=== PATIENT | female | born 1995 | race Caucasian/White ===

== ENCOUNTER 2021-01-21 11:25 | Emergency (ER) | payer OTHER, SELFPAY ==
[2021-01-21] VITALS (13 sets, daily range): BP systolic 101–142; BP diastolic 68–107; PULSE 78–113; RESP 12–17; TEMP 36.4; O2SAT 98–100
--- NOTE | ~2021-01-21 | CT_ITS ---
EXAMINATION: CT brain wo con DATE: 01/21/2021 12:59 INDICATION: Fall downstairs. Struck back of head. Syncope. Neck pain. TECHNIQUE: Computed tomography (CT) of the head was performed without intravenous contrast. The mA wa s adjusted according to patient size. Iterative reconstruction technique was employed. Exam dose: 60 5.33 mGy-cm total exam DLP. COMPARISON: None FINDINGS: No intracranial mass lesion or hemorrhage or cerebrovascular accident. No midline shift or mass effect. Normal ventricular size. Normal singh-white matter differentiation. No subdural or epidural hematoma. No fracture or bone destruction of the cranial vault. Included paranasal sinuses and mastoid air cells are normally developed and aerated. IMPRESSION: Negative examination Reviewed, dictated and finalized at [facility]. Reviewed, dictated and finalized at location A. 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
--- NOTE | ~2021-01-21 | CT_ITS ---
EXAMINATION: CT cervical spine wo con DATE: 01/21/2021 12:59 INDICATION: Fall downstairs. Neck pain. TECHNIQUE: Computed tomography (CT) of the cervical spine was performed without intravenous contrast. Automated exposure control and iterative reconstruction technique were employed. Exam dose: 283.46 mGy-cm total exam DLP. COMPARISON: None FINDINGS: C1 and C2 are normally aligned and the odontoid process is intact. Mild reversal of cervica l curvature. This may be due to muscle spasm or positioning. No fracture or dislocation or locked facet or prevertebral soft tissue swelling. The cervical intersp aces are well preserved.. IMPRESSION: Mild reversal of cervical curvature; no fracture or dislocation Reviewed, dictated and finalized at [facility]. Reviewed, dictated and finalized at location A. HT TEST ENGINEER
--- NOTE | ~2021-01-21 | CT_ITS ---
CT thoracic lumbar wo con DATE: 01/21/2021 13:04 INDICATION: Fall downstairs. Mid and low back pain TECHNIQUE: Axial images through the thoracic and lumbar spine; sagittal and coronal reconstructions Exam dose: 1225.52 mGy-cm total exam DLP. COMPARISON: None FINDINGS: No fracture or dislocation or bone destruction of the thoracic or lumbar spine. Lumbar levels interspaces are well preserved. No spondylolysis or spondylolisthesis. IMPRESSION: No thoracic or lumbar spine fracture Reviewed, dictated and finalized at [facility]. Reviewed, dictated and finalized at location A. LOGIST
--- NOTE | 2021-01-21 11:31 | ECG_ITS ---
Measurements Intervals [place] Rate: 75 P: 66 DC: 146 QRS: 57 QRSD: 91 T: -12 QT: 374 QTc: 420 Interpretive Statements SINUS RHYTHM WITH SINUS ARRHYTHMIA NONSPECIFIC T-WAVE ABNORMALITY- ANT/INF LEADS BORDERLINE ECG Electronically Signed On 01-21-2021 12:38:25 COGNOS by Hernan Sands D.O.
[2021-01-21 11:43] LABS: Basophils Percent Auto 0.3 % (0.2-1.2); Eosinophils Absolute Auto 0.1 K/mm3 (0-0.3); Hematocrit 38.9 % (37.0-47.0); Hemoglobin 12.8 g/dL (12.0-15.0); Immature Granulocyte Absolute 0.01 K/mm3 (0.00-0.031); Immature Granulocyte Percent A 0.2 % (0-0.5); Lymphocytes Absolute Auto 1.46 K/mm3 (0.9-3.2); Mean Corpuscular HGB Conc 32.9 g/dl (32-36); Mean Corpuscular Hemoglobin 29.9 pg (26-34); Mean Corpuscular Volume 90.9 fl (80-100); Mean Platelet Volume 10.3 fl (7.4-10.4); Monocytes Absolute Auto 0.7 K/mm3 (0.1-0.6); Neutrophils Absolute Auto 3.9 K/mm3 (1.3-6.7); Neutrophils Percent Auto 63.5 % (45.5-73.1); Platelet Count Result 296 k/mm3 (150-375); Red Blood Count 4.28 M/mm3 (4.2-5.4); Red Cell Distribution Width 13.1 % (11.5-14.5); White Blood Count 6.1 K/mm3 (4.5-10.0)
[2021-01-21 11:54] LABS: Anion Gap 9 mmol/L (8-16); Blood Urea Nitrogen 8 mg/dL (7-17); Calcium 9.5 mg/dL (8.4-10.2); Carbon Dioxide 27 mmol/L (22-30); Chloride 105 mmol/L (98-107); Estimated CRCL calculation 126 ml/min; Estimated Glomerular Filt Rate > 60; Glucose 108 mg/dL (65-105); Potassium 4.1 mmol/L (3.4-5.0); Sodium 141 mmol/L (137-145)
--- NOTE | 2021-01-21 12:52 | PC.NURSE ---
Pt declines toradol injection, states I dont want it. Pt to CT scan via stretcher at this time.
[2021-01-21 13:16] LABS: Ethanol < 10 mg/dL (<10)
--- NOTE | 2021-01-21 13:23 | ED.FALL ---
HPI - Fall General Chief Complaint: Fall Stated Complaint: migraine/dizzy/fall Time Seen by Provider: 01/21/21 12:18 Source: patient Mode of arrival: ambulatory Limitations: no limitations History of Present Illness HPI Narrative: 25-year-old female History of migraines States that about 4 AM today she got up to go to the bathroom and fell down the stairs from their second floor to the first Possibly lightheaded and/or dizzy before falling She has been at home and ambulatory since that time Decided to come to the ER for evaluation because of a painful bump on the back of her head and a headache, and neck pain when she turns her head to the right She did not lose consciousness, and she does not have any current numbness weakness or radicular symptoms No other injuries or complaints Related Data Allergies Allergy/AdvReac Type Severity Reaction Status Date / Time latex Allergy Unknown Rash Verified 01/21/21 13:15 sulfamethoxazole Allergy Unknown Hives Verified 01/21/21 13:15 trimethoprim Allergy Unknown Hives Verified 01/21/21 13:15 Review of Systems Review of Systems: All systems reviewed & are unremarkable except as noted in HPI and below Constitutional: Constitutional: Denies fatigue, Denies fever(s) and Denies headache(s) Eyes: Eyes: Reports no additional eye complaints and Denies change in vision ENT: Denies headache(s), Denies epistaxis, Denies nasal congestion and Denies sore throat Cardiovascular: Cardiovascular: Denies chest pain, Denies leg edema, Denies palpitations and Denies dyspnea Respiratory: Respiratory: Denies cough, Denies dyspnea and Denies wheezing Gastrointestinal: Gastrointestinal: Denies diarrhea and Denies vomiting Genitourinary: Genitourinary: Denies hematuria, Denies urinary frequency and Denies dysuria Musculoskeletal: Musculoskeletal: Denies deformity, Denies arthralgias, Denies joint swelling, Denies muscle weakness and Denies numbness Integumentary/Breasts: Skin/Breast: Denies rash and Denies wounds Neurologic: Reports syncope, Reports headache(s), Denies focal weakness, Denies numbness and Denies weakness Psychiatric: Psychiatric: Reports no additional psychiatric complaints Endocrine: Endocrine: Denies fatigue and Denies palpitations Hematologic/Lymphatic: Hematologic/Lymphatic: Denies easy bleeding and Denies easy bruising Allergic/Immunologic: Allergic/Immunologic: Denies wheezing PMFSH Social History Social History Gender identity (if verbalized by the patient): Female Exam Const: General: no acute distress, well developed, alert and awake Nutritional Appearance: well nourished Orientation/consciousness: patient oriented x3 (alert) Limitations: no limitations HENMT: Head: normocephalic, atraumatic, contusion (Occipital tenderness, does not seem to be terribly swollen) and no hematomas Ears: external ears normal General nose exam: No nasal discharge present and no epistaxis Face and sinus: face symmetric Eyes: Conjunctivae: conjunctivae normal Sclera: sclerae normal EOM: EOMs intact bilaterally Neck: Neck: supple and no JVD Other: Cervical collar was placed at triage and left in place, there is mild midline tenderness in the lower C-spine Chest: Chest palpation & inspection: normal inspection of the chest, deferred and no tenderness Resp: Effort & Inspection: normal respiratory effort Auscultation: clear to auscultation bilaterally and other (BS =) Cardio: Rate: regular rate Rhythm: regular rhythm Heart sounds: no gallops GI: Inspection: normal to inspection GI Palp: Yes Soft to palpation and No Tenderness to palpation present (GI) Other: Pelvis nontender : General: Yes no CVA tenderness Back/Spine/Pelvis: Thoracic/Lumbar Spine: thoracic and lumbar spine normal to inspection Other: Small bruise over the right mid back about at the tip of the scapula, mild mid thoracic and mid lumbar midline tenderness Skin: General skin exam: no rashes or l
--- NOTE | 2021-01-21 13:37 | PC.NURSE ---
Per Dr. Ritter requests the patients' c-collar remain in place at this time.
--- NOTE | 2021-01-21 14:34 | PC.NURSE ---
Dr. Ritter at bedside discussing plan of care.
== END 2021-01-21 14:43 | disposition home or self-care (01) ==
PROVIDERS: Emergency Medicine; Emergency Provider Emergency Medicine; PCP Obstetrics & Gynecology
DX: S20.221A Contusion of right back wall of thorax, initial encounter (principal); R94.31 Abnormal electrocardiogram [ECG] [EKG]; W10.9XXA Fall (on) (from) unspecified stairs and steps, initial encounter
CPT/HCPCS: 36415; 70450; 72125; 72128; 72131; 80048; 80307; 81025; 85025; 93005; 99284; L0140

== ENCOUNTER 2021-04-05 12:34 | Outpatient (CLI) | payer OTHER, SELFPAY ==
--- NOTE | ~2021-04-05 | US_ITS ---
EXAMINATION: US OB <=14 wk fetus w TV EXAM DATE: 04/05/2021 13:23 INDICATION: Routine care, dating. 1st trimester. TECHNIQUE: Pelvic obstetrical transabdominal sonogram was performed by a technologist. There are mu ltiple grayscale and Doppler images available for interpretation. There are no earlier studies of th is gestation for comparison. FINDINGS: Uterus measures 10.3 x 7.2 x 7.0 cm. There is intrauterine gestation sac. pole with heart rate confirmed at 154-166 beats per minute. The 1.44 cm crown-rump length corresponds to eva mated gestational age by ultrasound of 7 weeks 5 days, estimated date of confinement 11/17. Yolk sac is identified. Small subchorionic hematoma. Ovaries are morphologically normal. IMPRESSION: 1. Early live intrauterine gestation, age by ultrasound 7 weeks 5 days. 2. Small subchorionic hemorrhage. Reviewed, dictated and finalized at location A.
== END 2021-04-05 12:35 | disposition home or self-care (01) ==
PROVIDERS: PCP Obstetrics & Gynecology; Visit Provider Obstetrics & Gynecology
DX: O46.91 Antepartum hemorrhage, unspecified, first trimester (principal); Z3A.01 Less than 8 weeks gestation of pregnancy
CPT/HCPCS: 76801; 76817

== ENCOUNTER 2021-04-23 22:28 | Observation (INO) | payer OTHER, SELFPAY ==
[2021-04-23 22:36] VITALS: PULSE 96; O2SAT 100
[2021-04-23 23:16] VITALS: BMI 26.6
--- NOTE | 2021-04-23 23:18 | OBADM ---
This patient, Mavis Gee, admitted to the OB room OB Post 117 for observation. Patient/family oriented to hospital policies and general routines including ID bracelet, bed and alarms, visiting hours, pain management, procedures, bathroom and other care routines, personal items, smoking policy, room service/diet, and visiting hours. Patient/Family are encouraged to report perceived risks to care and to ask questions if they do not understand what they are told or what they should do.
[2021-04-23] MEDS: DEXTROSE 5%/LACTATED RINGERS 1,000 ML 500 ML IV CONT (23:35)
[2021-04-23] MEDS: ONDANSETRON INJ 4 MG/2 ML VIAL IV PUSH (23:35)
[2021-04-24] MEDS: DEXTROSE 5%/LACTATED RINGERS 1,000 ML 500 ML IV CONT (02:11)
[2021-04-24 08:17] VITALS: BP 115/53; PULSE 74; TEMP 37
[2021-04-24] MEDS: ONDANSETRON INJ 4 MG/2 ML VIAL IV PUSH (08:18)
--- NOTE | 2021-04-24 10:39 | PC.NURSE ---
1015--Pt. states she is feeling better and requesting to go home. Phone call to Dr. Jones re: pt's status and requesting DC home. Orders to DC home and f/u with next scheduled appointment.
--- NOTE | 2021-04-26 19:50 | PM.OBTRLD ---
OB - Triage/Final Diagnosis Visit Information Comments/Additional reasons for admission: I have assessed the risk for this patient, Mavis Gee, and determined that she would benefit from observation care. Final Diagnosis (1) Hyperemesis gravidarum: Code(s): O21.0 - Mild hyperemesis gravidarum Status: Acute (2) Dehydration during : Code(s): O26.899 - Other specified related conditions, unspecified trimester; E86.0 - Dehydration Status: Acute
== END 2021-04-24 10:32 | disposition home or self-care (01) ==
PROVIDERS: Admitting Provider Obstetrics & Gynecology; PCP Obstetrics & Gynecology; Visit Provider Obstetrics & Gynecology
DX: O21.1 Hyperemesis gravidarum with metabolic disturbance (principal); Z3A.10 10 weeks gestation of pregnancy
CPT/HCPCS: 96361; 96374; G0378; G0379; J2405; J7121

== ENCOUNTER 2021-05-03 12:35 | Outpatient (CLI) | payer OTHER, SELFPAY ==
--- NOTE | ~2021-05-03 | US_ITS ---
EXAMINATION: US OB <= 14 weeks fetus DATE: 05/03/2021 13:20 INDICATION: Follow-up subchorionic hematoma TECHNIQUE: Real-time transabdominal and transvaginal obstetric ultrasound. FINDINGS: 04/05/2021 The uterus measures 8.4 x 10.4 x 8.2 cm. There is an intrauterine gestational sac, with pole id entified. The crown rump length measures 6 cm. heart tones are identified measuring 149 BPM. T here is a subchorionic hemorrhage measuring 1.3 x 0.9 x 0.7 cm. Ovaries are not visualized. IMPRESSION: 1. SL IUP with an EGA of 11 weeks, 5 days (EDC by initial ultrasound of 11/17/2021). 2: Small subchorionic hemorrhage. Reviewed, dictated and finalized at location B. IMPRESSION: 1. SL IUP with an EGA of 11 weeks, 5 days (EDC by initial ultrasound of 021). 2: Small subchorionic hemorrhage.
== END 2021-05-03 12:36 | disposition home or self-care (01) ==
LOC: ANHIMG 12:35
PROVIDERS: PCP Obstetrics & Gynecology; Visit Provider Obstetrics & Gynecology
DX: O36.8911 Maternal care for other specified fetal problems, first trimester, fetus 1 (principal); Z3A.11 11 weeks gestation of pregnancy
CPT/HCPCS: 76801

== ENCOUNTER 2021-06-08 09:15 | Outpatient (CLI) | payer OTHER, SELFPAY ==
--- NOTE | ~2021-06-08 | US_ITS ---
EXAMINATION: US OB follow up EXAM DATE: 06/08/2021 09:42 INDICATION: Follow-up subchorionic hemorrhage. 2nd trimester. TECHNIQUE: Pelvic obstetrical transabdominal sonogram was performed by a technologist. There are mu ltiple grayscale and Doppler images available for interpretation. Comparison is made to prior examina tion from 05/03/2021. FINDINGS: There is a single fetus identified in vertex presentation with a heart rate of 149 beats pe r minute. The placenta is located in the anterior position. There is an intraplacental hypoechoic reg ion along its inner surface measuring about 1.2 x 1.1 x 1.7 cm, likely a venous donato. Hypoechoic sho on previously seen in subchorionic location has resolved. Retroplacental region is normal in appearan ce on this exam. IMPRESSION: 1. Single fetus in vertex presentation with heart rate 149 beats per minute. 2. Resolution of previously seen subchorionic hemorrhage. 3. Small placental venous donato. Reviewed, dictated and finalized at location A.
== END 2021-06-08 09:16 | disposition home or self-care (01) ==
LOC: ANHIMG 09:16
PROVIDERS: Visit Provider Obstetrics & Gynecology
DX: Z34.90 Encounter for supervision of normal pregnancy, unspecified, unspecified trimester (principal); Z3A.00 Weeks of gestation of pregnancy not specified
CPT/HCPCS: 76816

== ENCOUNTER 2021-07-09 14:36 | Outpatient (CLI) | payer OTHER, SELFPAY ==
--- NOTE | ~2021-07-09 | US_ITS ---
US OB /maternal detail DATE: 07/09/2021 16:01 INDICATION: anatomy screen; prior subchorionic hematoma TECHNIQUE: Real-time imaging and Doppler analysis COMPARISON: 06/08/2021 obstetrical ultrasound FINDINGS: Live single intrauterine gestation, fetus in vertex presentation, longitudinal lie. h eart rate of 141 bpm. Fundal placenta, lower margin 2.3 cm above the internal os. Subjectively normal amount of amniotic fluid. No cerebral ventriculomegaly. The cerebellum appears normal. Normal nuchal fold. 4 chambe r heart. Three-vessel umbilical cord with normal insertion at abdominal wall. The s pine appears unremarkable. The diaphragm appears intact. Fluid is demonstrated in the sto mach and urinary bladder. No hydronephrosis is demonstrated. male external genitalia. nose and lips appear unremarkable. Biometry: Biparietal diameter: 5.12 cm; 21 weeks 4 days Head circumference 19.03 cm; 21 weeks, 2 days Abdominal circumference 16.31 cm: 21 weeks 3 days Femur length 3.57 cm; 21 weeks 2 days Composite age by Hadlock formula is 21 weeks 3 days +/- 1 week 3 days; [place]: 11/12/2021 Estimated weight is 417.1 +/- 62.6 g. Head circumference/abdominal circumference: 1.17, within normal range of 1.0, 671.24 Femur length/abdominal circumference: 21.88, within normal range of 20.00-24.00 Femur length/head circumference: 18.75, within normal range of 16.9 cm-20.26 IMPRESSION: Normal anatomy screen Composite age by Hadlock formula is 21 weeks 3 days +/- 1 week 3 days; [place]: 11/12/2021 Reviewed, dictated and finalized at Location A. Reviewed, dictated and finalized at location A.
== END 2021-07-09 14:37 | disposition home or self-care (01) ==
PROVIDERS: PCP Obstetrics & Gynecology; Visit Provider Obstetrics & Gynecology
DX: Z34.92 Encounter for supervision of normal pregnancy, unspecified, second trimester (principal); Z3A.21 21 weeks gestation of pregnancy
CPT/HCPCS: 76805

== ENCOUNTER 2021-10-01 12:47 | Observation (INO) | payer OTHER, SELFPAY ==
[2021-10-01 13:13] VITALS: BP 118/63; PULSE 96
[2021-10-01 13:16] VITALS: BP 116/64; PULSE 95
[2021-10-01 13:31] VITALS: BP 115/71; PULSE 96
[2021-10-01 13:45] VITALS: BMI 62.8
[2021-10-01 14:31] LABS: Add Urine Microscopic? YES; Appearance Urine Cloudy (Clear); Bacteria Urine Trace /hpf; Bilirubin Urine Negative (Negative); Blood Urine Negative (Negative); Color Urine Yellow (Yellow); Glucose Urine UA Negative (Negative); Ketones Urine 1+ mg/dL (Negative); Leukocyte Esterase Ur 2+ LEU/UL (NEGATIVE); Mucus Urine Rare /lpf; Nitrate Urine Negative (Negative); Protein Urine Negative (Negative); Specific Grav Ur 1.014 (1.001-1.035); Squamous Epithelial Cell Urine Many /hpf (Few)
[2021-10-01] MEDS: LACTATED RINGERS 1,000 ML 999 ML IV CONT (15:28)
[2021-10-01] MEDS: ceFAZolin 2 GM/D5W 50 ML 2 GM/50 ML BAG IVPB (15:40)
--- NOTE | 2021-10-03 05:37 | PM.OBTRLD ---
OB - Triage/Final Diagnosis Visit Information Comments/Additional reasons for admission: I have assessed the risk for this patient, Mavis Gee, and determined that she would benefit from observation care. Evaluation Laboratory results: Laboratory Tests 10/01/21 13:52 Urine Color Yellow Urine Appearance Cloudy H Urine pH 6.0 Ur Specific [place] 1.014 Urine Protein Negative Urine Glucose (UA) Negative Urine Ketones 1+ H Ur Blood (Man) Negative Urine Nitrate Negative Urine Bilirubin Negative Urine Urobilinogen 2.0 H Ur Leukocyte Esterase 2+ H Urine RBC 3-5 H Urine WBC 7-9 H Ur Squamous Epith Cells Many H Urine Bacteria Trace Urine Mucus Rare Final Diagnosis (1) Dehydration during : Code(s): O26.899 - Other specified related conditions, unspecified trimester; E86.0 - Dehydration Status: Acute (2) UTI (urinary tract infection) during : Code(s): O23.40 - Unspecified infection of urinary tract in , unspecified trimester Status: Acute
== END 2021-10-01 15:56 | disposition home or self-care (01) ==
LOC: ANHOBPP 13:11
PROVIDERS: Admitting Provider Obstetrics & Gynecology; Visit Provider Obstetrics & Gynecology
DX: O26.893 Other specified pregnancy related conditions, third trimester (principal); O23.43 Unspecified infection of urinary tract in pregnancy, third trimester; E86.0 Dehydration; Z3A.33 33 weeks gestation of pregnancy
CPT/HCPCS: 81001; 87086; 87088; 96374; G0378; G0379; J0690; J7120

== ENCOUNTER 2021-10-10 07:47 | Observation (INO) | payer OTHER, SELFPAY ==
--- NOTE | 2021-10-10 07:47 | OBADM ---
This patient, Mavis Gee, admitted to the OB room OB Post 116 for observation. Patient/family oriented to hospital policies and general routines including ID bracelet, bed and alarms, visiting hours, pain management, procedures, bathroom and other care routines, personal items, smoking policy, room service/diet, and visiting hours. Patient/Family are encouraged to report perceived risks to care and to ask questions if they do not understand what they are told or what they should do.
[2021-10-10 08:00] VITALS: BMI 28.8
[2021-10-10 08:16] VITALS: BP 113/68; PULSE 89
[2021-10-10 08:23] LABS: Add Urine Microscopic? YES; Appearance Urine Cloudy (Clear); Bacteria Urine Trace /hpf; Bilirubin Urine Negative (Negative); Blood Urine Negative (Negative); Color Urine Yellow (Yellow); Glucose Urine UA 2+ mg/dL (Negative); Ketones Urine Negative (Negative); Leukocyte Esterase Ur 2+ LEU/UL (NEGATIVE); Mucus Urine Rare /lpf; Nitrate Urine Negative (Negative); Protein Urine Negative (Negative); Specific Grav Ur 1.013 (1.001-1.035); Squamous Epithelial Cell Urine Many /hpf (Few); Urobilinogen Urine Negative mg/dL (<2.0)
[2021-10-10 08:31] VITALS: BP 107/66; PULSE 76
[2021-10-10] MEDS: CYCLOBENZAPRINE HCL 5 MG TABLET PO (09:25)
--- NOTE | 2021-10-14 13:52 | PM.OBTRLD ---
OB - Triage/Final Diagnosis Visit Information Comments/Additional reasons for admission: I have assessed the risk for this patient, Mavis Gee, and determined that she would benefit from observation care. Evaluation Laboratory results: Laboratory Tests 10/10/21 08:01 Urine Color Yellow Urine Appearance Cloudy H Urine pH 7.0 Ur Specific [place] 1.013 Urine Protein Negative Urine Glucose (UA) 2+ H Urine Ketones Negative Ur Blood (Man) Negative Urine Nitrate Negative Urine Bilirubin Negative Urine Urobilinogen Negative Ur Leukocyte Esterase 2+ H Urine RBC 3-5 H Urine WBC 10-15 H Ur Squamous Epith Cells Many H Urine Bacteria Trace Urine Mucus Rare Final Diagnosis (1) Abdominal pain affecting : Code(s): O26.899 - Other specified related conditions, unspecified trimester; R10.9 - Unspecified abdominal pain Status: Acute
== END 2021-10-10 10:50 | disposition home or self-care (01) ==
PROVIDERS: Admitting Provider Obstetrics & Gynecology; Visit Provider Obstetrics & Gynecology
DX: O26.893 Other specified pregnancy related conditions, third trimester (principal); R10.9 Unspecified abdominal pain; Z3A.34 34 weeks gestation of pregnancy
CPT/HCPCS: 81001; 87086; 87088; A9270; G0378; G0379

== ENCOUNTER 2022-08-19 11:41 | Outpatient (CLI) | payer OTHER, SELFPAY ==
[2022-08-19 12:15] LABS: Basophils Absolute Auto 0.1 K/mm3 (0.0-0.1); Basophils Percent Auto 0.9 % (0.2-1.2); Eosinophils Absolute Auto 0.8 K/mm3 (0-0.3); Eosinophils Percent Auto 11.6 % (0-4.4); Hematocrit 34.3 % (37.0-47.0); Hemoglobin 10.4 g/dL (12.0-15.0); Immature Granulocyte Absolute 0.01 K/mm3 (0.00-0.031); Immature Granulocyte Percent A 0.1 % (0-0.5); Lymphocytes Absolute Auto 1.53 K/mm3 (0.9-3.2); Mean Corpuscular HGB Conc 30.3 g/dl (32-36); Mean Corpuscular Hemoglobin 26.6 pg (26-34); Mean Corpuscular Volume 87.7 fl (80-100); Mean Platelet Volume 10.5 fl (7.4-10.4); Monocytes Absolute Auto 0.6 K/mm3 (0.1-0.6); Monocytes Percent Auto 7.9 % (2.6-8.5); Neutrophils Percent Auto 57.5 % (45.5-73.1); Platelet Count Result 269 k/mm3 (150-375); Red Blood Count 3.91 M/mm3 (4.2-5.4); Red Cell Distribution Width 15.6 % (11.5-14.5)
== END 2022-08-19 11:42 | disposition home or self-care (01) ==
LOC: ANHLAB 11:43
PROVIDERS: Visit Provider Obstetrics & Gynecology
DX: N93.9 Abnormal uterine and vaginal bleeding, unspecified (principal); N92.6 Irregular menstruation, unspecified
CPT/HCPCS: 36415; 85025; 86850; 86900; 86901

== ENCOUNTER 2022-08-23 02:24 | Day surgery (SDC) | payer OTHER, SELFPAY ==
[2022-08-15 14:22] VITALS: BMI 24.7
--- NOTE | 2022-08-15 14:23 | PC.NURSE ---
Report to the Outpatient Waiting Room, entrance under the green pavilion located off [facility], at time 0930_ on date _08/23/22_. OR Time: __1130_. Time changes happen often and if your time is changed the preop area will call you the afternoon before. - You and your visitor will be asked to self-screen and do not enter if you have any COVID symptoms. - Only one visitor and NO children visitors are allowed at this time. - The patient visitor is requested to leave or wait in car when not with patient due to restrictions. - A mask is required within the hospital. Patients may have clear liquids (water, carbonated beverages, clear teas, apple juice) until 3 hours prior to surgery with a maximum of 20 ounces. - No food from midnight until time of surgery - Infants may have breast milk until 4 hours before surgery, infant formula 6 hours prior to surgery. - Children will be allowed to drink immediately following surgery. If applicable, please bring a bottle or sippy cup to assist with drinking. Juice, water, soda, and popsicles are readily available. For infants on formula, please bring formula the day of surgery. Pacifiers are allowed. Take the following medications with a SIP of water the morning of surgery: NONE Medications to discontinue per physician NONE Date to take last dose Please no make-up, nail kenyan, hairspray, perfume, deodorant, or body powder the day of surgery. No jewelry (including any body piercings) or valuables the day of surgery, leave them at home. Please take a shower or bath the night before, or the morning of, surgery with an antibacterial soap. Wear comfortable, loose fitting clothing. Children are encouraged to wear pajamas. - Jewelry must be removed prior to entering the operating room. Rings and piercings that are not removed may be cut off. - The hospital will not accept responsibility for valuables. - Please leave all valuables, including medications, at home the day of surgery. If you are going home after surgery, a licensed tilt tray driver must drive you home. - NO public transportation without another adult. - We recommend that an adult stay with you for 24 hours following discharge. - We also recommend that you do not drive, make important decision, drink alcoholic beverages, or take any drugs that were not prescribed by your health care provider for at least 24 hours after your discharge time. For Pediatric surgeries, we recommend two adults accompany the child home (only one inside the building at this time). Follow any additional instructions given to you from your surgeon. If you or anyone in your household have experienced Covid symptoms in the past week, please notify your surgeon or the nurse liaison at the phone number below for possible testing. Telephone instructions given to PATIENT__and asked if any additional questions and then verbalized understanding. Patient advised to call surgeon office or pre surgery nurse liaison [phone] if any additional questions.
--- NOTE | 2022-08-20 14:59 | P.HP_ITS ---
H&P: HPI History of Present Illness Date/Time: 08/20/22 14:59 Chief Complaint: Uterine prolapse pelvic pain failed ablation Narrative: Sh 26-year-old 3 para status post tubal who is admitted for robotic to jacob vaginectomy and bilateral salpingectomy secondary to severe pelvic pain and uterine prolapse. She has had her tubes tied. She has pain with intercourse and has what appears to be a normal-appearing ultrasound otherwise. As her pain has been unrelenting she will undergo hysterectomy. She understands this will make her permanently infertile. Risks and benefits of this procedure were reviewed including but not exclusive of , aspiration pneumonia, bleeding, transfusion, perforation injury to bowel, bladder, ureters, or other internal organs with need for open laparotomy. She received the ACOG handout entitled hysterectomy as well as the [place] handout. She had all questions answered. She asked to proceed PMFSH Past Medical History Medical History Hyperemesis gravidarum Social History Social History Smoking status: Never smoker Gender identity (if verbalized by the patient): Female Meds Home Medications and Allergies Home Medications Medication Instructions Recorded Confirmed Type No Home Medications 08/15/22 08/15/22 History Allergies Allergy/AdvReac Type Severity Reaction Status Date / Time chlorhexidine Allergy Severe Rash Verified 08/15/22 14:14 latex Allergy Unknown Rash Verified 01/21/21 13:15 sulfamethoxazole Allergy Unknown Hives Verified 01/21/21 13:15 trimethoprim Allergy Unknown Hives Verified 01/21/21 13:15 Exam Const: General: cooperative, healthy appearing and comfortable Nutritional Appearance: average body habitus Orientation/consciousness: oriented to person, oriented to place and oriented to time Chest: Chest palpation & inspection: normal inspection of the chest Resp: Effort & Inspection: normal respiratory effort Cardio: Rate: regular rate Rhythm: regular rhythm Heart sounds: S1 normal heart sound present and S2 normal heart sound present GI: Inspection: normal to inspection : External Female Exam: normal external appearance Speculum Exam - Vagina: normal appearance of the vagina Speculum Exam - Cervix: normal appearance of the cervix (Second-degree prolapse is present) Bimanual exam- vagina & uterus: Cervical tenderness present and enlarged Bimanual Exam- Adnexa, other: normal adnexae Assessment and Plan Assessment and plan (1) Uterine prolapse: Code(s): N81.4 - Uterovaginal prolapse, unspecified Status: Acute (2) Pelvic pain: Code(s): R10.2 - Pelvic and perineal pain Status: Acute Plan Robotic total vaginal hysterectomy and bilateral salpingectomy
--- NOTE | 2022-08-22 15:44 | WPDANESEPPF ---
Anes - Initial Pre Proc Eval Procedure: Operation Date: 08/23/22 11:30 Proposed Procedures p Robotic Assisted Total Vaginal Hysterectomy, Bilateral Salpingectomy - Luis Driscoll MD Date/Time: 08/22/22 15:44 Surgeon: Luis Driscoll MD Pre Op Diagnosis: Irrg Bleed, Uterine Prolapse Failed ablation Patient Data Age: 26 Gender: F Height: 1.75 m Weight: 76 kg Allergies Allergy/AdvReac Type Severity Reaction Status Date / Time chlorhexidine Allergy Severe Rash Verified 08/23/22 09:49 sulfamethoxazole Allergy Intermediate Hives Verified 08/23/22 09:49 trimethoprim Allergy Intermediate Hives Verified 08/23/22 09:49 Home Medications Medication Instructions Recorded Confirmed Type hydrocodone 5 mg-acetaminophen 325 1 tablet PO Q4H PRN pain #30 tabs 08/23/22 Rx mg tablet Patient hx anesthesia problems: none Family hx anesthesia problems: none Results Review: All pre-operative results and documents have been reviewed as part of the pre-operative evaluation. [facility] Past Medical History Medical History (Updated 08/23/22 @ 10:11 by Lewis Rivera MD) Hyperemesis gravidarum Pelvic pain Uterine prolapse Social History Social History Smoking status: Never smoker Living arrangements: with family Gender identity (if verbalized by the patient): Female Anes - Eval Final PreProcedure Day of Procedure 08/22/22 15:44 Patient weight: normal Heart: regular rate and rhythm Lungs: clear to auscultation and normal air movement Airway: Mallampati scale class II Neurological: alert and oriented Last oral intake: >/= 8 hours ASA classification: II Emergent: no Anesthetic plan: proceed Anesthesia type and monitoring: general ETT Results Review: All pre-operative results and documents have been reviewed as part of the pre-operative evaluation. Informed Consent: The patient's anesthetic plan and its attendant risks and benefits were discussed with the patient/family/POA. Questions were solicited and answers provided to the satisfaction of the patient/family/POA.
[2022-08-23] VITALS (11 sets, daily range): BP systolic 102–121; BP diastolic 54–72; PULSE 55–95; RESP 12–18; TEMP 36.1–37.2; O2SAT 99–100
--- NOTE | 2022-08-23 06:24 | WPDHPUPDATE1 ---
History and Physical Update Update Date/Time: 08/23/22 06:24 History and Physical has been reviewed, including an updated exam of the patient. There are NO changes in the patient's condition. Risks, benefits, and alternatives have been discussed and questions answered. Patient agrees to proceed with procedure.
[2022-08-23] MEDS: ACETAMINOPHEN 500 MG TABLET 1000 MG PO (09:57)
[2022-08-23] MEDS: LACTATED RINGERS 1,000 ML 30 ML IV CONT ×2 (10:08→13:39)
[2022-08-23] MEDS: KETOROLAC 15 MG/ML VIAL (*BKC) IV PUSH (10:10)
--- NOTE | 2022-08-23 13:17 | W.PM.PROC2 ---
Procedure Note - Detailed Date of Procedure 08/23/22 Pre-op Diagnosis Irrg Bleed, Uterine Prolapse Failed ablation Post-op Diagnosis Same Procedure Performed Robotic total vaginal hysterectomy and bilateral salpingectomy Surgeon Luis Driscoll MD Anesthesia General Indications A 26-year-old with heavy bleeding and uterine prolapse and pain Findings Uterine prolapse. Normal-appearing ovaries tubes and uterus Description of Procedure Patient was prepped draped in normal sterile fashion placed in dorsal lithotomy position. Under excellent general trach anesthesia weighted speculum placed posterior vagina. Anterior lip of the cervix grasped with single-tooth tenaculum and the uterus sounded to 10cm. Serial dilatation with fragmented dilators performed followed by passage of the 8. MELANY and the 3. Cold cup. Next the 16 Turkish catheter was placed in bladder and and drained of clear urine. The weighted speculum was withdrawn as was the single-tooth and the gloves were changed. A supraumbilical incision made the Veress needle passed in the abdomen. Abdomen filled with CO2 gas [id number]. The 8mm trocar advanced in the abdomen. Downside visualized no injury seen. Gas reattached. Placed the patient placed in Trendelenburg and a suprapubic incision made on the left and lateral right quadrant. The 8mm trocars advanced under direct visualization assuring no injury. A right upper quadrant incision made the 8mm trocar advanced under direct visualization assuring no injury. The robot was docked. Attention was turned to the console. The left round ligament grasped, burned, cut. Anteriorly bladder flap was formed by sharply dissecting the peritoneum and reflecting the bladder caudally to the opposite round ligament which was clamped, burned, cut. Next the left fallopian tube was skeletonized and dissected away from the ovarian complex and left attached at its uterine origin 8 origination. This was repeated on the contralateral side removing the right tube. The left utero-ovarian ligament was clamped, burned, cut brought to the level of the previously cut round ligament. Conserving the right ovary, the utero-ovarian ligaments clamped, burned, cut and brought to the level of previously cut round ligament. The cardinal broad ligaments were then serially skeletonized clamping burning cutting and hugging the uterine cervix until the uterine vessels could be seen on the left. These were large and tortuous and individually clamped, burned, cut. The right cardinal broad ligaments were then serially skeletonized clamping burning cutting and hugging the cervix and uterus to the uterine vessels could be seen on the right. These were individually clamped, burned, cut. At that point excellent blanching was seen. A colpotomy incision was made in the cervix uterus and tubes removed through the vagina. Vagina closed with continuous running 0V lock from lateral edge to lateral edge back to the midline. Irrigation undertaken until clear and blood loss estimated 25cc. The patient was awakened after the robot was withdrawn and the gas removed from the abdomen and the trocars removed. The incisions closed with 4 Monocryl and glue. Patient was awakened went to recovery in satisfactory condition. All sponge, needle, instrument counts were correct. There were no immediate complications noted Estimated Blood Loss 25 Drains No Packing No Pathology Yes Complications No immediate complications Condition Stable Disposition PACU
[2022-08-23] MEDS: fentaNYL CITRATE INJ (*CRX) 100 MCG/2 ML VIAL 25 MCG IV PUSH (14:07)
--- NOTE | 2022-08-23 15:00 | ADMGEN ---
This patient, Mavis Gee, was admitted to OB 2nd Floor Room 280-00. Patient/family oriented to hospital policies and general routines including ID bracelet, bed and alarms, visiting hours, pain management, procedures, bathroom and other care routines, personal items, smoking policy, room service/diet, and visiting hours. Information on how to activate the Rapid Response Team has been discussed. Patient/Family are encouraged to report perceived risks to care and to ask questions if they do not understand what they are told or what they should do.
[2022-08-23] MEDS: DEXTROSE 5%/LACTATED RINGERS 1,000 ML 125 ML IV CONT (15:49)
[2022-08-23] MEDS: KETOROLAC 30 MG/ML VIAL (*BKC) IV PUSH (15:50)
[2022-08-23] MEDS: SIMETHICONE 80 MG TAB.CHEW PO ×2 (18:10→20:58)
[2022-08-24] MEDS: DEXTROSE 5%/LACTATED RINGERS 1,000 ML 125 ML IV CONT (00:54)
[2022-08-24 00:58] VITALS: BP 102/55; PULSE 71; RESP 18; TEMP 37.3; O2SAT 100
[2022-08-24 04:10] VITALS: BP 100/56; PULSE 76; RESP 16; TEMP 37.1; O2SAT 100
--- NOTE | 2022-08-24 05:41 | PM.DS ---
DS: Admitting Diagnosis Discharge Date 08/24/2022 Admitting Diagnosis uterine prolapse and pelvic pain DS: Discharge Diagnosis Discharge Diagnosis (1) Uterine prolapse: Code(s): N81.4 - Uterovaginal prolapse, unspecified Status: Acute (2) Pelvic pain: Code(s): R10.2 - Pelvic and perineal pain Status: Acute DS: Summary Hospital Course Reason for hospitalization: patient was admitted for robotic hysterectomy and bilateral salpingectomy secondary to uterine prolapse and pelvic pain Hospital Course: patient underwent robotic total vaginal hysterectomy and bilateral salpingectomy on 08/23/2022. The procedure was unremarkable. She review her hospital course was unremarkable. She remained afebrile. She was up voiding without difficulty, ambulating, eating regular diet, and generally without complaints. Time Spent with Patient Time attestation: Total time spent providing and/or coordinating discharge services: Exam Const: General: cooperative, healthy appearing and comfortable Orientation/consciousness: oriented to person, oriented to place and oriented to time Resp: Effort & Inspection: normal respiratory effort GI: Inspection: normal to inspection and incision ( Incisions remain clean dry and intact) DS: Data Data Completed and Pending Pending studies at discharge: Pending at discharge 08/23/22 13:03 Surgical [PTH] Routine Labs on day of discharge: Labs from last 24 hours 08/24/22 04:59 WBC Pending RBC Pending Hgb Pending Hct Pending MCV Pending MCH Pending MCHC Pending RDW Pending Plt Count Pending MPV Pending Immature Gran % (Auto) Pending Neut % (Auto) Pending Lymph % (Auto) Pending [place] % (Auto) Pending Eos % (Auto) Pending Baso % (Auto) Pending Lymph # (Auto) Pending [place] # (Auto) Pending Eos # (Auto) Pending Baso # (Auto) Pending Abs Immat Gran (auto) Pending Absolute Neuts (auto) Pending Absolute Nucleated RBC Pending Nucleated RBC % Pending Discharge Plan Discharge Patient Disposition: Home, Self-Care Stand Alone Forms: General Discharge Instructions Follow-up/Referrals: Luis Holliday MD [Physician] - Discharge Medications: New hydrocodone-acetaminophen 5-325 mg tablet 1 tablet PO Q4H PRN (Reason: pain) Qty: 30 0RF
[2022-08-24 05:44] LABS: Basophils Percent Auto 0.5 % (0.2-1.2); Eosinophils Absolute Auto 0.2 K/mm3 (0-0.3); Eosinophils Percent Auto 3.3 % (0-4.4); Hematocrit 26.6 % (37.0-47.0); Hemoglobin 8.3 g/dL (12.0-15.0); Immature Granulocyte Absolute 0.01 K/mm3 (0.00-0.031); Immature Granulocyte Percent A 0.2 % (0-0.5); Lymphocytes Absolute Auto 1.52 K/mm3 (0.9-3.2); Lymphocytes Percent Auto 24.1 % (18.3-44.2); Mean Corpuscular HGB Conc 31.2 g/dl (32-36); Mean Corpuscular Hemoglobin 26.9 pg (26-34); Mean Corpuscular Volume 86.4 fl (80-100); Mean Platelet Volume 10.8 fl (7.4-10.4); Monocytes Absolute Auto 0.5 K/mm3 (0.1-0.6); Monocytes Percent Auto 7.1 % (2.6-8.5); Neutrophils Absolute Auto 4.1 K/mm3 (1.3-6.7); Neutrophils Percent Auto 64.8 % (45.5-73.1); Platelet Count Result 265 k/mm3 (150-375); Red Blood Count 3.08 M/mm3 (4.2-5.4); Red Cell Distribution Width 15.7 % (11.5-14.5); White Blood Count 6.3 K/mm3 (4.5-10.0)
--- NOTE | 2022-08-24 05:44 | PM.GYNPNOP ---
ACO COORDINATOR - A/P Postoperative Procedures: Procedures Operation Date: 08/23/22 11:30 Actual Procedure Side Surgeon p Robotic Assisted Total Vaginal Hysterectomy, Bilateral Salpingectomy Not Applicable Luis Driscoll MD Postoperative day: 1 Postoperative status: doing well Postoperative plan: routine post-op care, see orders, ambulate, advance diet and discharge Time Spent With Patient Time: Total time spent is greater than 50% in coordination of care (as documented) at patient's floor/unit and/or counseling patient: Time with patient: less than 15 minutes ACO COORDINATOR- PN:Subj Post-Op Subjective Date/time seen: 08/24/22 05:44 Subjective: patient reports feeling better, patient desires discharge, pain is well controlled and patient is tolerating oral intake Exam Const: General: cooperative, healthy appearing and comfortable Resp: Effort & Inspection: normal respiratory effort GI: Inspection: incision ( incisions are clean dry and intact) ACO COORDINATOR - PN: Obj Data Vital Signs Vital Signs: Vital Signs - 24 hr 08/23/22 09:36 08/23/22 13:39 08/23/22 13:50 Temperature 98.3 F 97.0 F L Pulse Rate 81 66 57 L Respiratory Rate 16 18 12 Blood Pressure 121/62 102/62 104/54 L Pulse Oximetry 100 100 100 Oxygen Delivery Room Air Simple Face Mask Simple Face Mask Oxygen Flow Rate 8 8 08/23/22 14:00 08/23/22 14:10 08/23/22 14:20 Temperature 97.5 F L Pulse Rate 56 L 55 L 57 L Respiratory Rate 13 14 12 Blood Pressure 107/60 116/65 111/64 Pulse Oximetry 100 100 100 Oxygen Delivery Simple Face Mask Simple Face Mask Room Air Oxygen Flow Rate 8 8 08/23/22 14:30 08/23/22 14:45 08/23/22 14:55 Temperature Pulse Rate 60 56 L 56 L Respiratory Rate 17 12 12 Blood Pressure 116/72 112/68 114/69 Pulse Oximetry 99 99 99 Oxygen Delivery Room Air Room Air Room Air Oxygen Flow Rate 08/23/22 15:15 08/23/22 15:30 08/23/22 20:00 Temperature 97.6 F 98.9 F Pulse Rate 68 95 Respiratory Rate 16 16 Blood Pressure 109/60 104/56 L Pulse Oximetry 100 99 Oxygen Delivery Room Air Oxygen Flow Rate 08/24/22 00:58 08/24/22 00:58 Temperature 99.1 F Pulse Rate 71 71 Respiratory Rate 18 18 Blood Pressure 102/55 L Pulse Oximetry 100 100 Oxygen Delivery Room Air Oxygen Flow Rate Intake/Output Intake/Output: Intake & Output 08/21/22 08/22/22 08/23/22 08/24/22 23:59 23:59 23:59 23:59 Intake Total 1450 Output Total 40 Balance 1410 Meds/Results Medications: Active Medications Generic Name Dose Route Start Last Admin Trade Name Freq PRN Reason Stop Dose Admin Hydrocodone Bitart/Acetaminophen 1 tab 08/23/22 14:59 Hydrocodone/Acetaminophen (*Crx) 5-325 Mg Tablet PO Q3H PRN Pain Rated 5 or Less Hydrocodone Bitart/Acetaminophen 1 tab 08/23/22 14:59 Hydrocodone/Acetaminophen (*Crx) 10-325 Mg Tablet PO Q3H PRN Pain Rated 6 or Greater Docusate Sodium 100 mg 08/23/22 17:00 08/23/22 17:59 Docusate Sodium 100 Mg Capsule PO Not Given BID SULY Enoxaparin Sodium 40 mg 08/24/22 09:00 Enoxaparin 40 Mg/0.4 Ml Syringe SUB-Q DAILY SULY Dextrose/Lactated Ringer's 1,000 mls @ 125 mls/hr 08/23/22 14:59 08/24/22 00:54 Dextrose 5%/Lactated Ringers IV CONT 125 mls/hr .Q8H SULY Administration Ibuprofen 600 mg 08/23/22 14:59 Ibuprofen 600 Mg Tablet PO Q6H PRN Cramping Ketorolac Tromethamine 30 mg 08/23/22 14:59 08/23/22 15:50 Ketorolac 30 Mg/Ml Vial (*Bkc) IV PUSH 08/28/22 14:58 30 mg Q6H PRN Administration Pain Rated 4-6 Naloxone HCl 0.1 mg 08/23/22 14:59 Naloxone Hcl 0.4 Mg/Ml Vial IV PUSH Q2M PRN Respiratory rate less than 10 Ondansetron HCl 4 mg 08/23/22 14:59 Ondansetron Inj 4 Mg/2 Ml Vial IV PUSH Q6H PRN Nausea And Vomiting Simethicone 80 mg 08/23/22 14:59 08/23/22 20:58 Simethicone 80 Mg Tab.Chew PO 80 mg Q2H PRN Administration Gas Labs CBC & Chem
[2022-08-24 07:24] VITALS: BP 109/54; PULSE 80; RESP 15; TEMP 37.3
[2022-08-24] MEDS: ENOXAPARIN 40 MG/0.4 ML SYRINGE SUB-Q (07:36)
[2022-08-24] MEDS: DOCUSATE SODIUM 100 MG CAPSULE PO (07:36)
[2022-08-24] MEDS: SIMETHICONE 80 MG TAB.CHEW PO (07:38)
== END 2022-08-24 10:55 | disposition home or self-care (01) ==
LOC: ANHSURGERY 09:17 → ANHOB2 15:04
PROVIDERS: Visit Provider Obstetrics & Gynecology
PROC: (CPT 58552; principal; 2022-08-23 11:30)
DX: N93.9 Abnormal uterine and vaginal bleeding, unspecified (principal); N81.4 Uterovaginal prolapse, unspecified; R10.2 Pelvic and perineal pain
CPT/HCPCS: 58552; S2900; 36415; 85025; 88307; 99199; A9270; J1100; J1650; J1885; J2250; J2405; J2704; J3010; J7030; J7120; J7121

== ENCOUNTER 2023-03-05 19:05 | Emergency (ER) | payer OTHER, SELFPAY ==
[2023-03-05 19:57] VITALS: BP 118/67; PULSE 72; RESP 16; TEMP 36.8; O2SAT 100
[2023-03-05 20:57] LABS: Basophils Percent Auto 0.4 % (0.2-1.2); Eosinophils Absolute Auto 0.1 K/mm3 (0-0.3); Eosinophils Percent Auto 2.2 % (0-4.4); Hematocrit 33.3 % (37.0-47.0); Hemoglobin 10.5 g/dL (12.0-15.0); Immature Granulocyte Absolute 0.01 K/mm3 (0.00-0.031); Immature Granulocyte Percent A 0.2 % (0-0.5); Lymphocytes Percent Auto 32.3 % (18.3-44.2); Mean Corpuscular HGB Conc 31.5 g/dl (32-36); Mean Corpuscular Hemoglobin 28.8 pg (26-34); Mean Corpuscular Volume 91.5 fl (80-100); Mean Platelet Volume 10.6 fl (7.4-10.4); Monocytes Absolute Auto 0.5 K/mm3 (0.1-0.6); Monocytes Percent Auto 8.4 % (2.6-8.5); Neutrophils Absolute Auto 3.2 K/mm3 (1.3-6.7); Neutrophils Percent Auto 56.5 % (45.5-73.1); Platelet Count Result 258 k/mm3 (150-375); Red Blood Count 3.64 M/mm3 (4.2-5.4); Red Cell Distribution Width 13.6 % (11.5-14.5); White Blood Count 5.6 K/mm3 (4.5-10.0)
[2023-03-05 21:06] LABS: Alanine Aminotransferase 18 U/L (6-35); Albumin Level 4.4 g/dL (3.5-5.1); Alkaline Phosphatase 87 U/L (38-126); Anion Gap 6 mmol/L (8-16); Aspartate Amino Transferase 20 U/L (14-36); Bilirubin,Total 0.4 mg/dL (0.2-1.3); Blood Urea Nitrogen 16 mg/dL (7-17); Calcium 8.7 mg/dL (8.4-10.2); Carbon Dioxide 28 mmol/L (22-30); Chloride 105 mmol/L (98-107); Estimated CRCL calculation 146 ml/min; Estimated Glomerular Filt Rate > 60; Glucose 84 mg/dL (65-110); Lipase 44 U/L (23-300); Potassium 3.9 mmol/L (3.4-5.0); Sodium 139 mmol/L (137-145)
--- NOTE | 2023-03-05 23:46 | PC.NURSE ---
no answer at triage
== END 2023-03-05 23:59 | disposition left against medical advice (07) ==
PROVIDERS: Emergency Provider General Practice
DX: R10.9 Unspecified abdominal pain (principal)
CPT/HCPCS: 36415; 80053; 83690; 85025; 99199

== ENCOUNTER 2023-06-04 21:10 | Emergency (ER) | payer OTHER, SELFPAY ==
--- NOTE | ~2023-06-04 | XR_ITS ---
EXAMINATION: XR knee RT 3V DATE: 06/04/2023 21:54 INDICATION: Right knee pain. Fall. TECHNIQUE: 3 views of right knee were obtained. COMPARISON: None. FINDINGS: Bone alignment is normal. No fracture. Joint spaces are normal. No knee joint effusion. IMPRESSION: 1. Normal right knee. Reviewed, dictated and finalized at location E. IMPRESSION: 1. Normal right knee.
--- NOTE | ~2023-06-04 | XR_ITS ---
EXAMINATION: XR ankle RT min 3V DATE: 06/04/2023 21:54 INDICATION: Right ankle pain. Fall. TECHNIQUE: 4 views of right ankle were obtained. COMPARISON: None. FINDINGS: Bone alignment is normal. No fracture. Joint spaces are normal. IMPRESSION: 1. No fracture. Reviewed, dictated and finalized at location E. IMPRESSION: 1. No fracture.
--- NOTE | 2023-06-04 22:23 | ED.LOWEXIN ---
HPI - Extremity Injury (Lower) General Chief Complaint: Extremity Injury, Lower <CARROLL Torre Last Filed: 06/04/23 22:53> Stated Complaint: fell over gate, hurt right leg <CARROLL Torre Last Filed: 06/04/23 22:53> Time Seen by Provider: 06/04/23 22:12 <CARROLL Torre Last Filed: 06/04/23 22:53> History of Present Illness HPI Narrative: 27-year-old female reports for evaluation of right knee and ankle pain x5 hours. Patient states she was stepping over a baby gate at home, her right foot got stuck on the gate and she fell over the gate, landing on her right leg with her knee bent and ankle inverted. States she felt a pop in her right knee during the fall. She is reporting pain to the superior anterior lower extremity and proximal dorsum of the foot as well as pain to the medial and lateral aspects of her knee. She denies swelling, fever. She is able to ambulate but with increased pain. <CARROLL Torre Last Filed: 06/04/23 22:53> Related Data Home Medications: Home Medications Medication Instructions Recorded Confirmed acetaminophen 325 mg capsule 325 mg PO Q6H PRN 06/06/23 06/06/23 (Tylenol) ibuprofen 200 mg tablet 200 mg PO Q6H PRN 06/06/23 06/06/23 <CARROLL Torre Last Filed: 06/04/23 22:53> Allergies/Adverse Reactions: Allergies Allergy/AdvReac Type Severity Reaction Status Date / Time chlorhexidine Allergy Severe Rash Verified 06/06/23 11:58 sulfamethoxazole Allergy Intermediate Hives Verified 06/06/23 11:58 trimethoprim Allergy Intermediate Hives Verified 06/06/23 11:58 <CARROLL Torre Last Filed: 06/04/23 22:53> Review of Systems Review of Systems: CONSTITUTIONAL: Denies fever, chills EYES: Denies visual changes, redness, or discharge. ENT: Denies rhinorrhea, congestion, sore throat, or otalgia. CARDIOVASCULAR: Denies chest pain, palpitations, or edema. RESPIRATORY: Denies cough or dyspnea. GASTROINTESTINAL: Denies abdominal pain, nausea, vomiting, or diarrhea. GENITOURINARY: Denies dysuria or hematuria. SKIN: Denies rash or itching. MUSCULOSKELETAL: See HPI NEUROLOGIC: Denies headache, numbness, dizziness, or weakness. PSYCHIATRIC: Denies anxiety or depression. <Brandie Keen PA-C - Last Filed: 06/04/23 22:53> [facility] Past Medical History Medical History: Medical History (Updated 06/06/23 @ 13:00 by Irineo Schilling MD) Hyperemesis gravidarum Pelvic pain Right knee injury Uterine prolapse <Brandie Keen PA-C - Last Filed: 06/04/23 22:53> Social History Social History: Social History Smoking status: Never smoker Alcohol intake: never Substance use: never Living arrangements: with family Gender identity (if verbalized by the patient): Female Spiritual care concerns: No <Brandie Keen PA-C - Last Filed: 06/04/23 22:53> Exam Narrative: GENERAL: Well-appearing, in no acute distress. HEAD: Normocephalic NECK: Supple. CHEST: No respiratory distress. Clear to auscultation, no adventitious breath sounds. HEART: Regular rate and rhythm. No murmur heard. Normal peripheral pulses. EXTREMITIES: RLE: Tenderness to the medial and lateral joint lines without effusion, warmth or erythema. No pain to posterior knee or over the patella. Negative posterior and anterior drawer, no laxity with varus or valgus stress. Tenderness to the distal tibia and navicular bone ecchymosis, edema, warmth or erythema. Negative high squeeze. Negative Holm's test. No tenderness remainder of lower extremity. Full active and passive range of motion of knee and ankle. DP pulse 2+. Cap refill less than 2. Sensation intact throughout. SKIN: Warm, dry, no rash. NEURO: No focal deficits. Alert and oriented x3. PSYCH: Normal mood and affect. <Brandie Keen PA-C - Last Filed: 06/04/23 22:53> [employer]CHIT[employer]/PA Phys
[2023-06-04 22:37] VITALS: BP 122/82; PULSE 82; RESP 14; TEMP 36.9; O2SAT 100
[2023-06-04] MEDS: ACETAMINOPHEN 500 MG TABLET 1000 MG PO (22:49)
[2023-06-04] MEDS: IBUPROFEN 600 MG TABLET PO (22:50)
[2023-06-04 23:09] VITALS: BP 120/86; PULSE 86; RESP 18; TEMP 37.1; O2SAT 98
== END 2023-06-04 23:11 | disposition home or self-care (01) ==
LOC: ANHED 22:37
PROVIDERS: Emergency Provider Physician Assistant
DX: S83.91XA Sprain of unspecified site of right knee, initial encounter (principal); S93.401A Sprain of unspecified ligament of right ankle, initial encounter; W01.0XXA Fall on same level from slipping, tripping and stumbling without subsequent striking against object, initial encounter
CPT/HCPCS: 73562; 73610; 99284; A9270

== ENCOUNTER 2023-06-19 15:31 | Outpatient (CLI) | payer OTHER, SELFPAY ==
--- NOTE | ~2023-06-19 | MR_ITS ---
MRI of the right knee Clinical history: Internal arrangement Technique: Coronal proton density and proton density-weighted images, sagittal proton-density and T2 fat-sat images, and axial proton-density fat-saturated images were acquired. Findings: Anterior and posterior cruciate ligaments are intact. Medial collateral ligament and the la teral collateral ligament complex are intact. Popliteus tendon is intact. Medial and lateral menisci are intact, without evidence of tear. Articular cartilage is well preserved throughout the knee. Marrow edema at the posterior medial and p osterolateral tibial plateau regions is consistent with bone contusions. Extensor mechanism is intact. No joint effusion or Leyva's cyst. Impression: Bone contusions at the posterior medial and posterolateral tibial plateau regions. No ligamentous injury or meniscal tear identified. Reviewed, dictated and finalized at location . Impression: Bone contusions at the posterior medial and posterolateral tibial plateau regio ns. No ligamentous injury or meniscal tear identified.
== END 2023-06-19 15:32 | disposition home or self-care (01) ==
PROVIDERS: Visit Provider Orthopaedic Surgery
DX: S80.11XA Contusion of right lower leg, initial encounter (principal); X58.XXXA Exposure to other specified factors, initial encounter
CPT/HCPCS: 73721

== ENCOUNTER 2023-11-23 14:26 | Emergency (ER) | payer OTHER, SELFPAY ==
[2023-11-23 14:28] VITALS: BP 147/71; PULSE 68; RESP 18; TEMP 36.9; O2SAT 100
[2023-11-23 15:08] LABS: Basophils Percent Auto 0.4 % (0.2-1.2); Eosinophils Absolute Auto 0.1 K/mm3 (0-0.3); Eosinophils Percent Auto 2.3 % (0-4.4); Hematocrit 36.2 % (37.0-47.0); Hemoglobin 11.5 g/dL (12.0-15.0); Immature Granulocyte Absolute 0.01 K/mm3 (0.00-0.031); Immature Granulocyte Percent A 0.2 % (0-0.5); Lymphocytes Absolute Auto 1.16 K/mm3 (0.9-3.2); Mean Corpuscular HGB Conc 31.8 g/dl (32-36); Mean Corpuscular Hemoglobin 30.1 pg (26-34); Mean Corpuscular Volume 94.8 fl (80-100); Mean Platelet Volume 10.6 fl (7.4-10.4); Monocytes Absolute Auto 0.4 K/mm3 (0.1-0.6); Monocytes Percent Auto 9.1 % (2.6-8.5); Neutrophils Absolute Auto 3.1 K/mm3 (1.3-6.7); Platelet Count Result 243 k/mm3 (150-375); Red Blood Count 3.82 M/mm3 (4.2-5.4); Red Cell Distribution Width 12.3 % (11.5-14.5); White Blood Count 4.8 K/mm3 (4.5-10.0)
[2023-11-23 15:13] LABS: Appearance Urine Clear (Clear); Bacteria Urine 1+ /hpf; Bilirubin Urine Negative (Negative); Blood Urine Negative (Negative); Color Urine Yellow (Yellow); Glucose Urine UA Negative (Negative); Ketones Urine Negative (Negative); Leukocyte Esterase Ur Trace LEU/UL (Negative); Nitrate Urine Negative (Negative); Non Pathogenic Casts 0-2; Protein Urine Negative (Negative); RBC Urine 0-2 /hpf (0-2); Specific Grav Ur 1.014 (1.001-1.035); Squamous Epithelial Cell Urine Moderate /hpf (Few)
[2023-11-23 15:15] LABS: Add Urine Microscopic? YES
[2023-11-23 15:22] LABS: Alanine Aminotransferase 14 U/L (6-35); Albumin Level 4.1 g/dL (3.5-5.1); Alkaline Phosphatase 76 U/L (38-126); Anion Gap 8 mmol/L (8-16); Aspartate Amino Transferase 18 U/L (14-36); Bilirubin,Total 0.4 mg/dL (0.2-1.3); Blood Urea Nitrogen 7 mg/dL (7-17); Calcium 8.7 mg/dL (8.4-10.2); Carbon Dioxide 24 mmol/L (22-30); Chloride 108 mmol/L (98-107); Estimated Glomerular Filt Rate > 60; Glucose 80 mg/dL (65-110); Potassium 3.5 mmol/L (3.4-5.0); Sodium 140 mmol/L (137-145)
--- NOTE | 2023-11-23 15:53 | ED.FEMALEGU ---
HPI - Female Genitourinary General Chief complaint: Urogenital-Female Stated complaint: Kidney pain Time Seen by Provider: 11/23/23 15:52 Source: patient Mode of arrival: ambulatory Limitations: no limitations History of Present Illness HPI Narrative: patient is a pleasant 27-year-old female with past medical history of anemia who presents emergency department today ambulatory the steady gait where she left work for evaluation of concerns that she could be dehydrated with which she feels is pain in her kidneys but it does not hurt to touch just in the inside. she states she has only urinated 3 times over the last 3 days or so. she can still urinate however, she has been drinking fluids she states. Denies any nausea, vomiting, diarrhea, constipation, chest pain, shortness a breath, urinary symptoms, cough, runny nose, blood in her urine. Related Data Home Medications Medication Instructions Recorded Confirmed acetaminophen 325 mg capsule 325 mg PO Q6H PRN 06/06/23 06/06/23 (Tylenol) ibuprofen 200 mg tablet 200 mg PO Q6H PRN 06/06/23 06/06/23 Allergies Allergy/AdvReac Type Severity Reaction Status Date / Time chlorhexidine Allergy Severe Rash Verified 06/12/23 08:38 sulfamethoxazole Allergy Intermediate Hives Verified 06/12/23 08:38 trimethoprim Allergy Intermediate Hives Verified 06/12/23 08:38 Review of Systems Review of Systems: All systems reviewed & are unremarkable except as noted in HPI and below PMFSH Past Medical History Medical History Abdominal pain affecting Anemia Anxiety Asthma Chronic headaches Dehydration during Hyperemesis gravidarum Pelvic pain Right knee injury Uterine prolapse UTI (urinary tract infection) during Vision abnormalities Surgical History Surgical History History of abdominal hysterectomy History of section complicating History of tonsillectomy History of wisdom tooth extraction Family History Family History Unknown Asthma Social History Social History Smoking status: Never smoker Alcohol intake: never Substance use: never Living arrangements: with family Occupation/Education: occupation 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 HEAD: Normocephalic, atraumatic. EYES: PERRLA and EOMI. ENT: Nares clear, no rhinorrhea or epistaxis. Mucous membranes moist. NECK: Supple. CHEST: Clear to auscultation. No respiratory distress. HEART: Regular rate and rhythm. No murmur heard. Normal peripheral pulses. ABDOMEN: Soft, nontender, nondistended, normal active bowel sounds.no CVA tenderness BACK: no back pain EXTREMITIES: Normal range of motion. No edema. SKIN: Warm, dry, no rash. NEURO: No focal deficits. Alert and oriented x3. CN II-XII grossly intact PSYCH: Normal mood and affect. Course Vital Signs Vital signs: Vital Signs Temperature 98.5 F 11/23/23 14:28 Pulse Rate 68 11/23/23 14:28 Respiratory Rate 18 11/23/23 14:28 Blood Pressure 147/71 H 11/23/23 14:28 Pulse Oximetry 100 11/23/23 14:28 Oxygen Delivery Room Air 11/23/23 14:28 Temperature 98.0 F 11/23/23 16:20 Pulse Rate 78 11/23/23 16:20 Respiratory Rate 16 11/23/23 16:20 Blood Pressure 128/73 11/23/23 16:20 Pulse Oximetry 100 11/23/23 16:20 Oxygen Delivery Room Air 11/23/23 14:28 MDM - Female Genitourinary MDM Narrative Medical decision making narrative: Patient has negative ER workup. Discussed find a primary care provider to have repeat labs and discuss her anemia. No sig
[2023-11-23 16:20] VITALS: BP 128/73; PULSE 78; RESP 16; TEMP 36.7; O2SAT 100
== END 2023-11-23 16:20 | disposition home or self-care (01) ==
PROVIDERS: Emergency Medicine; Emergency Provider Nurse Practitioner
DX: D64.9 Anemia, unspecified (principal); R53.83 Other fatigue; F41.9 Anxiety disorder, unspecified; J45.909 Unspecified asthma, uncomplicated
CPT/HCPCS: 36415; 80053; 81001; 81025; 85025; 87077; 87086; 87088; 87186; 99283

== ENCOUNTER 2024-08-05 19:54 | Emergency (ER) | payer OTHER, SELFPAY ==
[2024-08-05 20:04] VITALS: BP 133/79; PULSE 79; RESP 16; TEMP 36.5; O2SAT 100
[2024-08-05 20:18] LABS: BEDSIDEPREGUCG Negative (Negative)
[2024-08-05 20:23] LABS: Basophils Percent Auto 0.4 % (0.2-1.2); Eosinophils Absolute Auto 0.2 K/mm3 (0-0.3); Eosinophils Percent Auto 2.4 % (0-4.4); Hematocrit 38.7 % (37.0-47.0); Hemoglobin 12.8 g/dL (12.0-15.0); Immature Granulocyte Absolute 0.02 K/mm3 (0.00-0.031); Immature Granulocyte Percent A 0.3 % (0-0.5); Lymphocytes Absolute Auto 2.06 K/mm3 (0.9-3.2); Lymphocytes Percent Auto 29.6 % (18.3-44.2); Mean Corpuscular HGB Conc 33.1 g/dl (32-36); Mean Corpuscular Hemoglobin 30.6 pg (26-34); Mean Corpuscular Volume 92.6 fl (80-100); Mean Platelet Volume 10.5 fl (7.4-10.4); Monocytes Absolute Auto 0.6 K/mm3 (0.1-0.6); Monocytes Percent Auto 8.5 % (2.6-8.5); Neutrophils Absolute Auto 4.1 K/mm3 (1.3-6.7); Neutrophils Percent Auto 58.8 % (45.5-73.1); Platelet Count Result 285 k/mm3 (150-375); Red Blood Count 4.18 M/mm3 (4.2-5.4); Red Cell Distribution Width 12.2 % (11.5-14.5)
[2024-08-05 20:33] LABS: Alanine Aminotransferase 15 U/L (6-35); Albumin Level 4.5 g/dL (3.5-5.1); Alkaline Phosphatase 104 U/L (38-126); Anion Gap 10 mmol/L (4-12); Aspartate Amino Transferase 22 U/L (14-36); Bilirubin,Total 0.3 mg/dL (0.2-1.3); Blood Urea Nitrogen 12 mg/dL (7-17); Calcium 8.7 mg/dL (8.4-10.2); Carbon Dioxide 26 mmol/L (22-30); Chloride 101 mmol/L (98-107); Estimated CRCL calculation 138 ml/min; Estimated Glomerular Filt Rate > 60; Glucose 87 mg/dL (65-110); Lipase 41 U/L (23-300); Potassium 3.8 mmol/L (3.4-5.0); Sodium 137 mmol/L (137-145)
[2024-08-05 20:35] LABS: Add Urine Microscopic? YES; Appearance Urine Cloudy (Clear); Bacteria Urine 1+ /hpf; Bilirubin Urine Negative (Negative); Blood Urine Non-Hemolyzed Trace (Negative); Color Urine Yellow (Yellow); Glucose Urine UA Negative (Negative); Ketones Urine Trace mg/dL (Negative); Leukocyte Esterase Ur 1+ LEU/UL (Negative); Nitrate Urine Negative (Negative); Non Pathogenic Casts 0-2; Protein Urine 1+ mg/dL (Negative); Specific Grav Ur 1.032 (1.001-1.035); Squamous Epithelial Cell Urine Occasional /hpf (Few); WBC Urine >100 /hpf (0-3); pH Urine 6.5 (5.0-9.0)
== END 2024-08-06 01:53 | disposition left against medical advice (07) ==
LOC: ANHED 08-06 00:26
PROVIDERS: Emergency Provider Emergency Medicine
DX: R10.32 Left lower quadrant pain (principal); R10.31 Right lower quadrant pain
CPT/HCPCS: 36415; 80053; 81001; 81025; 83690; 85025; 87077; 87086; 87088; 99199

== ENCOUNTER 2025-01-23 10:44 | Emergency (ER) | payer OTHER, SELFPAY ==
[2025-01-23 11:05] VITALS: BP 141/66; PULSE 95; RESP 16; TEMP 36.4; O2SAT 100
--- NOTE | 2025-01-23 11:53 | ED.GENADULT ---
HPI - General Adult General Chief complaint: Fall Stated complaint: fall Time Seen by Provider: 01/23/25 11:26 History of Present Illness HPI narrative: Patient is a 29-year-old female who presents ER with left ankle pain. She was stepping over a gas pump when she rolled her ankle yesterday. Has pain with walking. No numbness or tingling. No swelling. Would like to make sure it is not broken. Related Data Allergies Allergy/AdvReac Type Severity Reaction Status Date / Time chlorhexidine Allergy Severe Rash Verified 01/23/25 11:05 sulfamethoxazole Allergy Intermediate Hives Verified 01/23/25 11:05 trimethoprim Allergy Intermediate Hives Verified 01/23/25 11:05 Review of Systems Constitutional: Constitutional: Reports no additional constitutional complaints Musculoskeletal: Musculoskeletal: Reports no additional musculoskeletal complaints Neurologic: Reports system reviewed and no additional complaints, except as documented PMFSH Past Medical History Medical History Abdominal pain affecting Anemia Anxiety Asthma Chronic headaches Dehydration during Hyperemesis gravidarum Pelvic pain Right knee injury Uterine prolapse UTI (urinary tract infection) during Vision abnormalities Surgical History Surgical History History of abdominal hysterectomy History of section complicating History of tonsillectomy History of wisdom tooth extraction Family History Family History Unknown Asthma Social History Social History Smoking status: Never smoker Alcohol intake: never Substance use: never Living arrangements: with family Occupation/Education: occupation 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 HEAD: Normocephalic, atraumatic. ENT: Mucous membranes moist. EXTREMITIES: Normal range of motion. No edema. Mild tenderness over left ATFL. SKIN: Warm, dry, no rash. NEURO: Alert and oriented x3. PSYCH: Normal mood and affect. Course Course Emergency Course: Ankle sprain, Ranulfo wrap, rest/ice/comression/elevation for home. Vital Signs Vital signs: Vital Signs Temperature 97.6 F 01/23/25 11:05 Pulse Rate 95 01/23/25 11:05 Respiratory Rate 16 01/23/25 11:05 Blood Pressure 141/66 H 01/23/25 11:05 Pulse Oximetry 100 01/23/25 11:05 Oxygen Delivery Room Air 01/23/25 11:05 Temperature 97.6 F 01/23/25 11:05 Pulse Rate 95 01/23/25 11:05 Respiratory Rate 16 01/23/25 11:05 Blood Pressure 141/66 H 01/23/25 11:05 Pulse Oximetry 100 01/23/25 11:05 Oxygen Delivery Room Air 01/23/25 11:05 Medical Decision Making Vital Signs Vital Signs: Vital Signs Temperature 97.6 F 01/23/25 11:05 Pulse Rate 95 01/23/25 11:05 Respiratory Rate 16 01/23/25 11:05 Blood Pressure 141/66 H 01/23/25 11:05 Pulse Oximetry 100 01/23/25 11:05 Oxygen Delivery Room Air 01/23/25 11:05 Temperature 97.6 F 01/23/25 11:05 Pulse Rate 95 01/23/25 11:05 Respiratory Rate 16 01/23/25 11:05 Blood Pressure 141/66 H 01/23/25 11:05 Pulse Oximetry 100 01/23/25 11:05 Oxygen Delivery Room Air 01/23/25 11:05 Imaging Data Radiologist's impression: ITS Impressions Ankle X-Ray 01/23/25 11:15 Impression: Unremarkable left ankle. Discharge Plan Discharge Clinical Impression: Ankle sprain Patient Disposition: Home, Self-Care Condition: Stable Instructions: Ankle Sprain (ED), P.R.I.C.E. Treatment (ED) Patient Language: Frisian Prescriptions: New naproxen 375 mg tablet 375 mg PO BID Qty: 14 0RF Follow-up/Referrals: UNKNOWN,DOCTOR [Primary Care Provider] - 1 Week
== END 2025-01-23 12:21 | disposition home or self-care (01) ==
PROVIDERS: Emergency Provider Emergency Medicine
DX: S93.402A Sprain of unspecified ligament of left ankle, initial encounter (principal); J45.909 Unspecified asthma, uncomplicated; Z86.2 Personal history of diseases of the blood and blood-forming organs and certain disorders involving the immune mechanism; Z90.710 Acquired absence of both cervix and uterus; X50.9XXA Other and unspecified overexertion or strenuous movements or postures, initial encounter
CPT/HCPCS: 73610; 99283

== ENCOUNTER 2025-03-22 10:35 | Outpatient (CLI) | payer OTHER, SELFPAY ==
--- NOTE | ~2025-03-22 | MR_ITS ---
MRI of the left ankle Clinical history: Sprain Technique: Coronal proton-density and proton-density fat-sat images, axial proton-density and proton- density fat-sat images, and sagittal proton-density and proton-density fat-sat images were acquired. Findings: There is thickening and increased signal of the poor definition of the anterior and posteri or distal tibiofibular ligaments. Interosseous membrane is also poorly delineated. Anterior talofibul ar ligament, posterior talofibular ligament, and calcaneofibular ligament are intact. Anterior talofi bular ligament may be minimally thickened. Deltoid ligament is intact. Medial flexor tendons, peroneal tendons, anterior extensor tendons, and Achilles tendon are intact. There is no osteochondral lesion of the talar dome. Bone marrow signals and joint spaces are intact. Moderate tibiotalar joint effusion present. Plantar fascia intact. There is mild subcutaneous soft ti ssue edema about the ankle. Impression: Poor definition with thickening and increased signal of the anterior and posterior distal tibiofibula r ligaments, with additional poor delineation of the interosseous membrane. Findings are compatible w ith high ankle sprain . Moderate tibiotalar joint effusion. Reviewed, dictated and finalized at location . Impression: Poor definition with thickening and increased signal of the anterior and stove installer ior distal tibiofibular ligaments, with additional poor delineation of the inte rosseous membrane. Findings are compatible with high ankle sprain . Moderate tibiotalar joint effusion.
--- OUTSIDE RECORDS SUMMARY | 2025-03-22 11:53 | XMS_ITS | Data Portability ---
Author Organization LYUBOV JULIOJenny Hdz Address [address] [place] [address] Assessment No assessment recorded. Plan of Treatment Reminders Order Date Submit Date Provider Last Modified By Organization Details Last Modified Time Details Appointments None recorded. Lab urinalysis , dipstick 2020 021 [email or web address] In-Office Order, Internal Use Only DO Not Attach Compendium DO Not Attach Compendium, Do Not Delete/merge, [id number] 06:20:21 Referral None recorded. Procedures None recorded. Surgeries None recorded. Imaging US, pelvis, complete - Vaginal bleeding for repeat ceasarean section. Rule out retained placenta and assess for other etilogies. [address] [facility] ([facility]), [address] [place], [address], 12:36:59 Medication Orders None recorded. Patient TargetsNo targets recorded. Patient InstructionsNo instructions recorded. Reason for Referral None Reported. Results Created Date Observation Date Name Description Value Unit Range Abnormal Flag Note LastModifiedBy Organization Detail LastModifiedTime 10/11/2010/18/2021 NUSWA B VG+, HSV hsv 1 COBY Negati ve negati ve Not Available [facility] ([facility]) [address] [facility], [place], [address], 10/19/2021 20:07:43 10/11/20 21 10/18/2021 NUSWA B VG+, HSV hsv 2 COBY Negati ve negati ve Not Available [facility] ([facility]) [address] [facility], [place], [address], 10/19/2021 20:07:43 10/11/20 21 10/19/2021 NUSWA B VG+, HSV atopobium vaginae Low - 0 score Not Available [facility] ([facility]) [address] [facility], [place], [address], 10/19/2021 20:07:43 10/11/20 21 10/19/2021 NUSWA B VG+, HSV bvab 2 Low - 0 score Not Available [facility] ([facility]) [address] [facility], [place], [address], 10/19/2021 20:07:43 10/11/20 21 10/19/2021 NUA B VG+, HSV megasphaera 1 Low - 0 score Calcu late total score by bryce g the 3 indiv idual bacte rial vagin osis (BV) marke r score s toget her. Total score is inter prete d as follo ws: Total score 0-1: Indic ates the absen ce of BV. Total score 2: Indet ermin ate for BV. Addit ional clini nereida data shoul d be evalu ated to estab stacey a diagn osis. Total score 3-6: Indic ates the prese nce of BV. This test was devel oped and its perfo rmanc e daryl cteri stics deter mined by [facility]. It has not been clear ed or appro danielle by the Food and Drug Admin istra tion. Not Available [facility] ([facility]) [address] [facility], [place], [address], 10/19/2021 20:07:43 10/11/20 21 10/19/2021 NUSWA B VG+, HSV daryl albicans, COBY Positi ve negati ve abnormal Not Available [facility] ([facility]) [address] [facility], [place], [address], 10/19/2021 20:07:43 10/11/20 21 10/19/2021 NUSWA B VG+, HSV daryl glabrata, COBY Negati ve negati ve Not Available [facility] ([facility]) [address] [facility], [place], [address], 10/19/2021 20:07:43 10/11/20 21 10/19/2021 NUSWA B VG+, HSV trich vag by COBY Positi ve negati ve abnormal Not Available [facility] ([facility]) [address] [facility], [place], [address], 10/19/2021 20:07:43 10/11/20 21 10/19/2021 NUSWA B VG+, HSV chlamydia trachomatis, COBY Negati ve negati ve Not Available [facility] ([facility]) [address] [facility], [place], [address], 10/19/2021 20:07:43 10/11/20 21 10/19/2021 NUSWA B VG+, HSV neisseria gonorrhoeae, COBY Negati ve negati ve Not Available [facility] ([facility]) [address] [facility], [place], [address], 10/19/2021 20:07:43 10/11/20 21 10/11/2021 urina lysis , dipst ick Leukocytes Small Not Available In-Offi ce Order Internal Use Only DO Not Attach Compendium DO Not Attach Compendium, Do Not Delete/merge, [id number] 10/11/2021 10:44:48 10/11/20 21 10/11/2021 urina lysis , dipst ick Nitrite negati ve Not Available In-Office Order Internal Use Only DO Not Attach Compendium DO Not Attach Compendium, Do Not Delete/merge, [id number] 10/11/2021 10:44:48 10/11/20 21 10/11/2021 urina lysis , dipst ick Urobilinogen 2 Not Available In-Of fice Order Internal Use Only DO Not Attach Compendium DO Not Attach Compendium, Do Not Delete/merge, [id number] 10/11/2021 10:44:48 10/11/20 21 10/11/2021 urina lysis , dipst ick Protein 30 Not Available In-Office Order Internal Use Only DO Not Attach Compendium DO Not Attach Compendium, Do Not Delete/merge, [id number] 10/11/2021 10:44:48 10/11/20 21 10/11/2021 urina lysis , dipst ick pH 6.5 Not Available In-Office Order Internal Use Only DO Not Attach Compendium DO Not Attach Compendium, Do Not Delete/merge, [id number] 10/11/2021 10:44:48 10/11/20 21 10/11/2021 urina lysis , dipst ick Blood Negati ve Not Available In-Office Order Internal Use Only DO Not Attach Compendium DO Not Attach Compendium, Do Not Delete/merge, [id number] 10/11/2021 10:44:48 10/11/20 21 10/11/2021 urina lysis , dipst ick Specific Harris 1.030 Not Available In-Off ice Order Internal Use Only DO Not Attach Compendium DO Not Attach Compendium, Do Not Delete/merge, [id number] 10/11/2021 10:44:48 10/11/20 21 10/11/2021 urina lysis , dipst ick Ketone Negati ve Not Available In-Office Order Internal Use Only DO Not Attach Compendium DO Not Attach Compendium, Do Not Delete/merge, [id number] 10/11/2021 10:44:48 10/11/20 21 10/11/2021 urina lysis , dipst ick Bilirubin Negati ve Not Available In-Office Order Internal Use Only DO Not Attach Compendium DO Not Attach Compendium, Do Not Delete/merge, [id number] 10/11/2021 10:44:48 10/11/20 21 10/11/2021 urina lysis , dipst ick Glucose Negati ve Not Available In-Office Order Internal Use Only DO Not Attach Compendium DO Not Attach Compendium, Do Not Delete/merge, [id number] 10/11/2021 10:44:48 10/23/20 21 10/23/2021 urina lysis , dipst ick Leukocytes Small Not Available In-Offi ce Order Internal Use Only DO Not Attach Compendium DO Not Attach Compendium, Do Not Delete/merge, [id number] 10/23/2021 12:08:13 10/23/20 21 10/23/2021 urina lysis , dipst ick Nitrite negati ve Not Available In-Office Order Internal Use Only DO Not Attach Compendium DO Not Attach Compendium, Do Not Delete/merge, [id number] 10/23/2021 12:08:13 10/23/20 21 10/23/2021 urina lysis , dipst ick Urobilinogen 1 Not Available In-Of fice Order Internal Use Only DO Not Attach Compendium DO Not Attach Compendium, Do Not Delete/merge, [id number] 10/23/2021 12:08:13 10/23/20 21 10/23/2021 urina lysis , dipst ick Protein Negati ve Not Available In-Office Order Internal Use Only DO Not Attach Compendium DO Not Attach Compendium, Do Not Delete/merge, [id number] 10/23/2021 12:08:13 10/23/20 21 10/23/2021 urina lysis , dipst ick pH 6.5 Not Available In-Office Order Internal Use Only DO Not Attach Compendium DO Not Attach Compendium, Do Not Delete/merge, [id number] 10/23/2021 12:08:13 10/23/20 21 10/23/2021 urina lysis , dipst ick Blood Negati ve Not Available In-Office Order Internal Use Only DO Not Attach Compendium DO Not Attach Compendium, Do Not Delete/merge, [id number] 10/23/2021 12:08:13 10/23/20 21 10/23/2021 urina lysis , dipst ick Specific Harris 1.025 Not Available In-Off ice Order Internal Use Only DO Not Attach Compendium DO Not Attach Compendium, Do Not Delete/merge, [id number] 10/23/2021 12:08:13 10/23/20 21 10/23/2021 urina lysis , dipst ick Ketone Trace Not Available In-Office Order Internal Use Only DO Not Attach Compendium DO Not Attach Compendium, Do Not Delete/merge, [id number] 10/23/2021 12:08:13 10/23/20 21 10/23/2021 urina lysis , dipst ick Bilirubin Negati ve Not Available In-Office Order Internal Use Only DO Not Attach Compendium DO Not Attach Compendium, Do Not Delete/merge, [id number] 10/23/2021 12:08:13 10/23/20 21 10/23/2021 urina lysis , dipst ick Glucose Negati ve Not Available In-Office Order Internal Use Only DO Not Attach Compendium DO Not Attach Compendium, Do Not Delete/merge, [id number] 10/23/2021 12:08:13 10/30/20 21 11/03/2021 STREP GP B CULTU RE+RF LX strep gp B culture+rflx Negati ve negati ve Cente rs for Disea se Contr ol and Preve ntion (CDC) and [facility] can Congr ess of Obste trici ans and Gynec ologi sts (ACOG ) guide lines for preve ntion of perin atal group B strep tococ nereida (GBS) disea se speci fy co-co llect ion of a vagin al and recta l swab speci men to maxim ize sensi tivit y of GBS detec tion. Per the CDC and ACOG, swabb ing both the lower vagin a and rectu m subst antia lly incre ases the yield of detec tion keanu red with sampl ing the vagin a alone . Penic illin G, ampic illin , or cefaz dorota are indic ated for intra partu m proph ylaxi s of perin atal GBS colon izati on. Refle x susce ptibi lity testi ng shoul d be perfo rmed prior to use of clind amyci n only on GBS isola blanka from penic illin -nakul rgic women who are consi dered a high risk for anaph ylaxi s. Treat ment with vanco mycin witho ut addit ional testi ng is warra nted if resis tance to clind amyci n is noted . Not Available [facility] ([facility]) [address], [place], [address], 11/03/2021 14:09:16 10/30/20 21 10/30/2021 urina lysis , dipst ick Leukocytes Small Not Available In-Offi ce Order Internal Use Only DO Not Attach Compendium DO Not Attach Compendium, Do Not Delete/merge, [id number] 10/30/2021 11:08:14 10/30/20 21 10/30/2021 urina lysis , dipst ick Nitrite negati ve Not Available In-Office Order Internal Use Only DO Not Attach Compendium DO Not Attach Compendium, Do Not Delete/merge, [id number] 10/30/2021 11:08:14 10/30/20 21 10/30/2021 urina lysis , dipst ick Urobilinogen 1 Not Available In-Of fice Order Internal Use Only DO Not Attach Compendium DO Not Attach Compendium, Do Not Delete/merge, [id number] 10/30/2021 11:08:14 10/30/20 21 10/30/2021 urina lysis , dipst ick Protein Negati ve Not Available In-Office Order Internal Use Only DO Not Attach Compendium DO Not Attach Compendium, Do Not Delete/merge, [id number] 10/30/2021 11:08:14 10/30/20 21 10/30/2021 urina lysis , dipst ick pH 7.0 Not Available In-Office Order Internal Use Only DO Not Attach Compendium DO Not Attach Compendium, Do Not Delete/merge, [id number] 10/30/2021 11:08:14 10/30/20 21 10/30/2021 urina lysis , dipst ick Blood Negati ve Not Available In-Office Order Internal Use Only DO Not Attach Compendium DO Not Attach Compendium, Do Not Delete/merge, [id number] 10/30/2021 11:08:14 10/30/20 21 10/30/2021 urina lysis , dipst ick Specific Harris 1.025 Not Available In-Off ice Order Internal Use Only DO Not Attach Compendium DO Not Attach Compendium, Do Not Delete/merge, [id number] 10/30/2021 11:08:14 10/30/20 21 10/30/2021 urina lysis , dipst ick Ketone Negati ve Not Available In-Office Order Internal Use Only DO Not Attach Compendium DO Not Attach Compendium, Do Not Delete/merge, [id number] 10/30/2021 11:08:14 10/30/20 21 10/30/2021 urina lysis , dipst ick Bilirubin Negati ve Not Available In-Office Order Internal Use Only DO Not Attach Compendium DO Not Attach Compendium, Do Not Delete/merge, [id number] 10/30/2021 11:08:14 10/30/20 21 10/30/2021 urina lysis , dipst ick Glucose Negati ve Not Available In-Office Order Internal Use Only DO Not Attach Compendium DO Not Attach Compendium, Do Not Delete/merge, [id number] 10/30/2021 11:08:14 10/30/20 21 10/30/2021 urina lysis , dipst ick Appearance Slight ly Cloudy Not Available In-Office Order Internal Use Only DO Not Attach Compendium DO Not Attach Compendium, Do Not Delete/merge, [id number] 10/30/2021 11:08:14 10/30/20 21 10/30/2021 urina lysis , dipst ick Color Yellow Not Available In-Office Order Internal Use Only DO Not Attach Compendium DO Not Attach Compendium, Do Not Delete/merge, [id number] 10/30/2021 11:08:14 11/05/20 21 11/05/2021 urina lysis , dipst ick Leukocytes Small Not Available In-Offi ce Order Internal Use Only DO Not Attach Compendium DO Not Attach Compendium, Do Not Delete/merge, [id number] 11/05/2021 17:22:07 11/05/20 21 11/05/2021 urina lysis , dipst ick Nitrite negati ve Not Available In-Office Order Internal Use Only DO Not Attach Compendium DO Not Attach Compendium, Do Not Delete/merge, [id number] 11/05/2021 17:22:07 11/05/20 21 11/05/2021 urina lysis , dipst ick Urobilinogen 1 Not Available In-Of fice Order Internal Use Only DO Not Attach Compendium DO Not Attach Compendium, Do Not Delete/merge, [id number] 11/05/2021 17:22:07 11/05/20 21 11/05/2021 urina lysis , dipst ick Protein Trace Not Available In-Office Order Internal Use Only DO Not Attach Compendium DO Not Attach Compendium, Do Not Delete/merge, [id number] 11/05/2021 17:22:07 11/05/20 21 11/05/2021 urina lysis , dipst ick pH 7.0 Not Available In-Office Order Internal Use Only DO Not Attach Compendium DO Not Attach Compendium, Do Not Delete/merge, [id number] 11/05/2021 17:22:07 11/05/20 21 11/05/2021 urina lysis , dipst ick Blood Negati ve Not Available In-Office Order Internal Use Only DO Not Attach Compendium DO Not Attach Compendium, Do Not Delete/merge, [id number] 11/05/2021 17:22:07 11/05/20 21 11/05/2021 urina lysis , dipst ick Specific Harris 1.020 Not Available In-Off ice Order Internal Use Only DO Not Attach Compendium DO Not Attach Compendium, Do Not Delete/merge, [id number] 11/05/2021 17:22:07 11/05/20 21 11/05/2021 urina lysis , dipst ick Ketone Negati ve Not Available In-Office Order Internal Use Only DO Not Attach Compendium DO Not Attach Compendium, Do Not Delete/merge, [id number] 11/05/2021 17:22:07 11/05/20 21 11/05/2021 urina lysis , dipst ick Bilirubin Negati ve Not Available In-Office Order Internal Use Only DO Not Attach Compendium DO Not Attach Compendium, Do Not Delete/merge, [id number] 11/05/2021 17:22:07 11/05/20 21 11/05/2021 urina lysis , dipst ick Glucose Negati ve Not Available In-Office Order Internal Use Only DO Not Attach Compendium DO Not Attach Compendium, Do Not Delete/merge, [id number] 11/05/2021 17:22:07 11/05/20 21 11/05/2021 urina lysis , dipst ick Appearance Cloudy Not Available In-Offi ce Order Internal Use Only DO Not Attach Compendium DO Not Attach Compendium, Do Not Delete/merge, [id number] 11/05/2021 17:22:07 11/05/20 21 11/05/2021 urina lysis , dipst ick Color Yellow Not Available In-Office Order Internal Use Only DO Not Attach Compendium DO Not Attach Compendium, Do Not Delete/merge, [id number] 11/05/2021 17:22:07 01/04/20 22 01/03/2022 US, pelvi s, compl ete No observ ation record ed. [email or web address] [facility] ([facility]) [address] [place], [address], 01/05/2022 17:42:01 Result Notes None recorded. Problems Name Problem SNOMED Code Status Onset Date Resolution Date Notes Provider Name and Address Organization Details Recorded Time Anemia 499822477 Completed 2017 Ty og, [place] - [facility] 8 16:23:24 Anemia 786988612 Active 2017 Malinda Acosta [place] [facility] 1 16:47:52 Suspecte d macrosom ia 995613034 Active 2017 Ty Karendominique og, [place] - [facility] 8 16:23:24 Suspecte d macrosom ia 598061763 Completed 2017 Ty Karen [place] - [facility] 8 16:23:24 History of back pain 03291209445 4102 Active 2017 Ty Karendominique og, [place] [facility] 8 14:15:21 Deliveri es by [id number] Completed 201711/09/2018 [place] [facility] 8 15:50:43 Deliveri es by Active 2017 Malnida Ac[place] [facility] 1 16:47:52 Generali zed anxiety disorder 44806238 Completed 201907/13/2020 Ty [place], [place] [facility] 0 19:12:38 Depressi ve disorder 70884047 Active 2019 Malinda Ac[place] [facility] 1 16:47:51 Generali zed anxiety disorder 01755056 Active 2019 Malinda Ac[place] [facility] 1 16:47:52 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 Luis Levi [place] [facility] 1 03:53:35 Pregnanc y 38124752 Completed 202011/20/2021 Malinda Ac[place] [facility] 16:47:56 Anemia 551781347 Completed 2017 Malinda Ac[place] [facility] 16:47:52 Deliveri es by [id number] Completed 2017 Malinda Ac[place] [facility] 1 16:47:52 Depressi ve disorder 05015500 Completed 2019 Malinda Ac[place] [facility] 16:47:51 Generali zed anxiety disorder 28483754 Completed 2019 Malinda Ac[place] [facility] 1 16:47:52 Hypereme sis gravidar um 42514491 Completed Malinda Ac[place] [facility] 1 16:47:52 Urogenit al infectio n by Trichomo dylon vaginali s 22379134 Completed 2020 Malinda Ac[place] [facility] 1 16:47:51 Urogenit al infectio n by Trichomo dylon vaginali s 95166610 Active 2020 Malinda Ac[place] [facility] 1 16:47:52 Migraine 22555145 Completed 2020 Malinda Ac[place] [facility] 1 16:47:51 Migraine 80229144 Active 2020 Malindayoni Acosta [place] [facility] 1 16:47:51 Glucose toleranc e test outside referenc e range 458599714 Completed 2020 Malindayoni Acosta JERSON [place] [facility] 1 16:47:52 Glucose toleranc e test outside referenc e range 975383409 Active 2020 Malinda BarriosigJERSON bettencourt [place] [facility] 1 16:47:52 Hypereme sis 447308782 Completed 09/23/2017 Ty [place] [facility] 7 11:09:28 Abnormal progeste mando 123009360 Active Luis Levi [place] [facility] 1 03:53:35 Hypereme sis 980417743 Completed Alize Meehan [place] [facility] 6 10:55:02 Abnormal progeste mando 032901913 Completed Alize Mee[place] [facility] 6 10:55:02 Candidia sis 35249309 Active Ty [place] [facility] 8 16:23:24 Candidia sis 91278283 Completed Alize Mee[place] [facility] 6 10:55:03 Acute lower urinary tract infectio n 552719679 Completed 09/23/2017 Ty [place] [facility] 7 11:09:35 Acute lower urinary tract infectio n 491620401 Completed Alize M[place] [facility] 6 10:55:02 Hypereme sis gravidar um 50163299 Active Malinda Acosta [place] [facility] 1 16:47:52 Hypereme sis gravidar um 58789032 Completed Alize M[place] [facility] 6 10:55:02 Lower urinary tract symptoms 309961334 Completed 09/23/2017 Ty [place] [facility] 7 11:09:12 Lower urinary tract symptoms 918500644 Completed Alize [place] [facility] 6 10:55:02 Urinary tract infectio us disease 66273100 Completed 07/22/2019 [place] [facility] 9 15:15:13 Urinary tract infectio us disease 95774825 Completed Alize M[place] [facility] 6 10:55:02 Reduced movement 323114315 Completed 01/14/2017 Chelsea JERSON Mens[place] [facility] 7 15:06:20 Reduced movement 982644309 Completed Alize M[place] [facility] 6 10:55:02 Postpart um state 10498255 Completed 09/23/2017 [place] [facility] 7 11:09:17 Bacteria l vaginosi s 994420088 [place] [facility] 8 16:23:24 Pregnanc y 49898462 Completed 201609/23/2017 Malinda Acosta [place] [facility] 1 16:47:56 HPV - Human papillom avirus test positive Completed 2016 Ty [place] [facility] 8 16:23:24 HPV - Human papillom avirus test positive Active 2016 [place] [facility] 8 16:23:24 Abnormal progeste mando 403622143 Completed [place] [facility] 8 16:23:24 Bacteria l vaginosi s 200498082 Completed [place] [facility] 8 16:23:24 Urinary tract infectio us disease 08319091 Completed [place] [facility] [place] 16:23:24 Candidia sis 40009675 Com[place] [facility] 06/28/201 8 16:23:24 Problem Notes None recorded. Procedures Surgical History Date Name Laterality Status Provider Name and Address Organization Details Recorded Time 12/25/19 22 Date of Last Pap Smear completed Brandt Gibson [place] [facility] 08/09/2022 14:27:07 06/04/20 18 Depo Injection completed Alize Meehan [place] [facility] 06/04/2018 17:02:11 05/08/20 18 SECTION (SURG) completed Ty Jones [place] [facility] 05/11/2018 21:32:28 07/22/20 16 Depo Injection completed Chelsea Mensah [place] [facility] 07/22/2016 13:55:32 11/24/19 15 Other completed Ted Salomon RN [place] [facility] 12/08/2015 11:07:15 10/24/20 07 Tonsillectomy completed Chelsea Mensah MA [place] [facility] 04/01/2017 15:17:38 Imaging Results Imaging Date Name Status LastModified by Organiz ation Details LastModified Time 01/03/2022 US, pelvis, complete completed [email or web address] [facility] ([facility]) [address] [place], [address], 01/05/2022 17:42:01 Procedure Notes None recorded. Medical Equipment None Reported. Allergies Allergen ID Allergen Name Allergen Category Reaction Reaction Severity Criticality Documentation Date Start Date Code Code System Note Provider Name and Address Organization Details Recorded Time 112284 Blistex medicatio n other severe Not available 10/23/2017 89245 7 RxNorm mouth sores ,corm ex also Not Available Not Available Not Available 662522 chlorhexi dine medicatio n rash moderate Not available 05/11/20182017 2358 RxNorm rash of abdom en, in the bound rolan of abdom inal prep for c-sec tion Not Available Not Available Not Available 679336 latex environme nt,medica tion rash moderate Not available 02/13/2021 79882 91 RxNorm Not Available Not Available Not Available 15617 Bactrim medicatio n other severe Not available 11/08/2015 05907 9 RxNorm Mouth break out with cold sores Not Available Not Available Not Available Medications Name Sig Start Date Stop Date Status Note LastModified by Organization Details LastModified Time ondansetr on hcl 4 mg tabs active Not Available Not Available Not Available ondansetr on odt 4 mg tbdp active Not Available Not Available Not Available ranitidin e hcl 300 mg tabs active Not Available Not Available Not Available nitrofura ntoin monohydra te/macroc rystals 100 mg caps active Not Available Not Available Not Available cephalexi n 500 mg caps active Not Available Not Available Not Available fluconazo le 150 mg tabs active Not Available Not Available Not Available Prescript ion - Prior Authoriza tion Request 08/09 completed Not Available Not Available Not Available metoclopr amide hcl 10 mg tabs active Not Available Not Available Not Available multivita min tablet TAKE 1 TABLET BY MOUTH EVERY DAY 08/09 completed Not Available Not Available Not Available cyclobenz aprine 10 mg tablet Take 1 tablet 3 times a day by oral route as needed. 12/30 completed Not Available Not Available Not Available metformin 500 mg tablet TAKE 1 TABLET BY MOUTH EVERY DAY IN THE MORNING 04/05 completed Not Available Not Available Not Available metoclopr amide 5 mg/mL injection solution Take 2 mL by injectio n route. 12/30 completed Not Available Not Available Not Available cetirizin e 10 mg tablet Take 1 tablet every day by oral route. 12/30 completed Not Available Not Available Not Available azithromy dallin 250 mg tablet TAKE 2 TABLETS (500 MG) BY ORAL ROUTE ONCE DAILY FOR 1 DAY THEN 1 TABLET (250 MG) BY ORAL ROUTE ONCE DAILY FOR 4 DAYS 04/05 completed Not Available Not Available Not Available ibuprofen 800 mg tablet Take 1 tablet 3 times a day by oral route with meals. 12/30 completed Not Available Not Available Not Available fluconazo le 150 mg tablet TAKE 1 TABLET BY MOUTH EVERY DAY 11/20 completed Not Available Not Available Not Available ampicilli n 500 mg capsule Take 1 capsule every 6 hours by oral route with meals for 7 days. 01/14 completed Not Available Not Available Not Available ranitidin e 300 mg tablet Take 1 tablet every day by oral route. active Not Available Not Available No t Available sumatript an 100 mg tablet take 1 tablet by oral route as needed. not to exceed 2 tablets per 24 hours. active Not Available Not Available No t Available hydrocodo ne 5 mg-acetam inophen 325 mg tablet TAKE 1 TABLET BY MOUTH EVERY 4 HOURS NEEDED FOR PAIN active Not Available Not Available No t Available Claritin 10 mg tablet Take 1 tablet every day by oral route. 12/30 completed Not Available Not Available Not Available ondansetr on HCl 2 mg/mL intraveno us solution ADMINIST ER 2 ML INTRAVEN OUSLY EVERY DAY FOR 13 DAYS 12/30 completed Not Available Not Available Not Available sumatript an 25 mg tablet 07/13 completed Not Available Not Available Not Available metronida zole 0.75 % (37.5 mg/5 gram) vaginal gel INSERT 1 APPLICAT ORFUL VAGINALL Y EVERY DAY AT BEDTIME FOR 5 DAYS 10/11 completed Not Available Not Available Not Available ondansetr on HCl 4 mg tablet TAKE 1 TABLET BY MOUTH EVERY 8 HOURS NEEDED 08/09 completed Not Available Not Available Not Available ceftriaxo ne 250 mg solution for injection Take 250 mg by injectio n route for 1 day. 04/01 completed Not Available Not Available Not Available sertralin e 100 mg tablet Take 1 tablet twice a day by oral route with meals. 07/13 completed Not Available Not Available Not Available penicilli n V potassium 500 mg tablet Take 1 tablet twice a day by oral route for 10 days. 01/14 completed Not Available Not Available Not Available metronida zole 500 mg tablet TAKE 4 TABLETS BY MOUTH EVERY DAY FOR 1 DAY 12/04 completed Not Available Not Available Not Available acetamino phen 300 mg-codein e 30 mg tablet 12/30 completed Not Available Not Available Not Available ciproflox acin 500 mg tablet Take 1 tablet every 12 hours by oral route for 5 days. 12/30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 (INVESTMENT ASSOCIATE) [address] [place] [address] 02649-603 0 05/11/2018 13:21:28 05/11/2018 14:17:29 Eruption 420704605 R21 rash of abdomen, in the boundaries of abdominal prep for Delivery b y elective section 809547329 Z37.9 had elective c section on 05/08 for lga [id number] Ty Hines (INVESTMENT ASSOCIATE) [address] [place] [address] 62917-465 0 05/21/2018 15:39:06 05/21/2018 16:38:20 care 836101321 Z39.2 Family daysi nning surveillance 386438174 Z30.09 To be decided [id number] Ty Hines (INVESTMENT ASSOCIATE) [address] [place] [address] 00378-340 0 06/04/2018 16:36:40 06/04/2018 17:26:43 Family planning surveillance 823276010 Z30.09 depo provera injections . Risk of ex posure to communicable disease 298391093 Z20.9 HPV - Lenore n papillomavirus test positive 213461743 R87.619 Bacterial vaginosis 4197 61831 N76.0 Candidiasis 78000183 B37 .9 [id number] Ty Hines (INVESTMENT ASSOCIATE) [address] [place] [address] 22734-965 0 11/09/2018 11:22:33 11/09/2018 12:51:35 Abnormal uterine bleeding 6749986299 9100 N93.9 Family dayis nning surveillance 867528822 Z30.09 depo provera injections . Deliveries by [id number] O82 [id number] Ty Hines (INVESTMENT ASSOCIATE) [address] [place] [address] 14183-242 0 12/30/2018 16:50:04 12/31/2018 12:02:20 Abnormal vaginal bleeding 334550570 N93.9 Anemia 332462216 D64.9 [id number] [facility] [address] [place] [address] 35306-107 0 07/22/2019 14:17:14 07/23/2019 14:07:14 Gynecologic examination 48664606 Z01.419 Pt could not give urine specimen today msimpson Deliveries by [id number] O82 Anemia 420962369 D64.9 HPV - Lenore n papillomavirus test positive 459222453 R87.619 Urinary tr act infectious disease 82930654 N39.0 Generalize d anxiety disorder 84706227 F41.1 [id number] [facility]) [address] [place] [address] 02929-137 0 01/25/2020 16:09:03 01/26/2020 12:47:37 Family planning surveillance 907223875 Z30.09 Chronic mi graine without aura 6001929662 89574 G43.709 Depressive disorder 3548 9007 F32.9 [id number] Ty Hines (INVESTMENT ASSOCIATE) [address] [place] [address] 03350-383 0 05/09/2020 11:30:09 05/10/2020 11:06:36 Family planning surveillance 405897651 Z30.09 Migraine 84841856 G43.90 9 Chronic mi graine without aura 1341065692 38954 G43.709 Depressive disorder 3548 9007 F32.9 Irregular periods 463714 07 N92.6 Deliveries by [id number] O82 Abnormal progesterone 13 1861446 R94.7 [id number] Ty Hines [facility] (INVESTMENT ASSOCIATE) [address] [place] [address] 44675-299 0 07/13/2020 12:47:00 07/14/2020 07:54:22 Family planning surveillance 083392693 Z30.09 Generalize d anxiety disorder 78025969 F41.1 Depressive disorder 3547 F32.9 [id number] JERSON [facility] (INVESTMENT ASSOCIATE) [address] [place] [address] 71081-644 0 01/23/2021 11:41:39 02/02/2021 06:25:39 Family planning surveillance 433038853 Z30.09 Dysmenorrhea 703739180 N 94.6 failed NSAID Fall W19.XXXA [id number] Ty Hines (INVESTMENT ASSOCIATE) [address] [place] [address] 30087-491 0 02/13/2021 16:32:21 02/14/2021 08:35:24 Abnormal uterine bleeding 2085304135 9100 N93.9 previous Deliveries by [id number] O82 Acute urin joan tract infection 432267546 N39.0 Abnormal progesterone 13 4616050 R94.7 Polycystic ovary syndrome 592699111 E28.2 PCOS [id number] [facility] (INVESTMENT ASSOCIATE) [address] [place] [address] 90703-276 0 04/05/2021 10:00:33 04/06/2021 09:26:53 Generalized anxiety disorder 92326803 F41.1 Depressive disorder 3547 F32.9 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 Routine an tenatal care 173255570 Z34.90 Venereal d isease screening 017109878 Z11.3 screening 2437 52257 Z36.85 [id number] Ty Hines (INVESTMENT ASSOCIATE) [address] [place] [address] 81745-077 0 05/03/2021 10:50:29 05/04/2021 12:43:42 Routine care 136757322 Z34.90 Abnormal progesterone 13 6347506 R94.7 8.4, 6.8 Deliveries by [id number] O82 Heterozygo us methylenetetrahydrofo late reductase mutation 2780010108 42272 E72.12 heterozygo us for the MTHFR Z2819N variant [id number] Ty Hines (INVESTMENT ASSOCIATE) [address] [place] [address] 03827-024 0 06/25/2021 15:48:50 06/30/2021 11:58:47 Heterozygous methylenetetrahydrofo late reductase mutation 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 P2284Z variant Abnormal progesterone 13 0032634 R94.7 8.4, 6.8 Routine an tenatal care 126989307 Z34.90 [id number] Ty Hines (INVESTMENT ASSOCIATE) [address] [place] [address] 71383-996 0 07/23/2021 14:38:42 07/24/2021 05:56:58 Routine care 755267765 Z34.90 Heterozygo us methylenetetrahydrofo late reductase mutation 8796013299 02633 E72.12 heterozygo us for the MTHFR N9471M variant Deliveries by [id number] O82 Depressive disorder 3548 9007 F32.9 Generalize d anxiety disorder 36682563 F41.1 Migraine 87311486 G43.90 9 [id number] Ty Hines (INVESTMENT ASSOCIATE) [address] [place] [address] 77342-155 0 08/22/2021 10:07:50 08/24/2021 09:07:16 Routine care 116953419 Z34.82 Z36.9 Heterozygo us methylenetetrahydrofo late reductase mutation 3852709235 43958 E72.12 heterozygo us for the MTHFR Y9083G variant Abnormal progesterone 13 5096140 R94.7 8.4, 6.8 Deliveries by O82 plan on 11/10/21 Depressive disorder 3548 9007 F32.9 Generalize d anxiety disorder 31176257 F41.1 Hyperemesi s gravidarum 70634670 O21.0 Sent to Labor and delivery for hydrothera py and fluidthera py Migraine 53034881 G43.90 9 [id number] Ty AustinKarendominique Hines (INVESTMENT ASSOCIATE) [address] [place] [address] 04432-221 0 09/26/2021 14:24:00 09/27/2021 09:36:05 Routine care 799915644 Z34.82 Z36.9 abn 1 hr --nl 3hr gtt. Having Howell-Hi cks contractio ns nightly. Maternity belt provided for back pain. US for monthly imaging provided, pt desires 3D US. Deliveries by O82 plan on 11/10/21 Heterozygo us methylenetetrahydrofo late reductase mutation [id number] 26304 E72.12 heterozygo us for the MTHFR F8054L variant. B12 given today. Continue folic acid, ASA, and progestero ne. Hyperemesi s gravidarum 80097143 O21.0 Sent to Labor and delivery for hydrothera py and fluidthera py Depressive disorder 3548 9007 F32.9 Generalize d anxiety disorder 47639608 F41.1 Abnormal progesterone 13 9486134 R94.7 35 [id number] Edgardo Hines (INVESTMENT ASSOCIATE) [address] [place] [address] 97120-527 0 10/11/2021 10:09:43 10/22/2021 06:56:18 Routine care 810135961 Z34.93 No VB, VD, or regular contractio ns, or decreased movement. Patient reports possible leakage of fluid for 2 weeks - ferning negative. No pooling or fluid with Valsalva. Patient desires tubal and possible ablation 2/2 to history of heavy menses. Desires repeat C/S. Nuswab today. RTC 1 week - GBS at that time. [id number] Edgardo Hines (INVESTMENT ASSOCIATE) [address] [place] [address] 60184-004 0 10/23/2021 11:59:43 10/23/2021 13:28:26 Routine care 495354624 Z34.93 No VB, VD, or regular contractio ns, or decreased movement. Patient desires tubal at time of repeat C/S. Taking medication for previously Dx'd Trichomona s and Candidiasi s. Mood stable. RTC 1 week - GBS at that time. [id number] Edgardo Hines (INVESTMENT ASSOCIATE) [address] [place] [address] 61314-642 0 10/30/2021 10:56:59 11/02/2021 15:50:54 Routine care 069809272 Z34.93 No VB, VD, regular contractio ns, or decreased movement. GBS today. Patient reports continued sensation of LOF despite reassuring triage assessment . Neg ferning and pooling today. Recommende d Monistat for clinically evident candidiasi s. Anxiety and depression stable. RTC in 1 week. [id number] Edgardo Strong [facility] (INVESTMENT ASSOCIATE) [address] [place] [address] 11/05/2021 16:51:49 11/07/2021 23:44:22 Normal 64116370 Z34.90 No VB, VD, or regular contractio ns, or decreased movement. Plans for RTCS with BTL on 11/13. [id number] Edgardo Hines (INVESTMENT ASSOCIATE) [address] [place] [address] 54972-569 0 11/20/2021 16:25:34 11/22/2021 12:05:54 care 406094147 Z39.2 Post-op [id number] 003 who is 1 week s/p repeat low-transv erse section with bilateral salpingect jonn.Doing well post-op. Continue post-op restrictio ns until reassessed at PPVPregnan cy complicati ons: Anxiety/De pression, Anemia, Hyperemesi s Gravidarum , Trichomona sBottle feeding without difficulty .She denies any changes in her mood.Last Pap - 04/05/21 = unsatisfac tory for evaluation , HPV negRTC - 5 weeks for PPV and Pap [id number] Edgardo Hines (INVESTMENT ASSOCIATE) [address] [place] [address] 01577-633 0 12/27/2021 08:41:32 01/04/2022 07:33:21 Abnormal uterine bleeding 3848496852 9100 N93.9 - Patient reports heavy vaginal bleeding (occasiona l passage of clots, 10-15 pads per day) since delivery - unable to follow up secondary to scheduling issues in office per patient report. Denies symptoms of anemia. Heavy bleeding similar to AUB between her past pregnancie s.- Plans for stat pelvic ultrasound to assess for retained placenta or other contributi ng etiologies . follow up early next week for in office assessment . Bleeding precaution s given to patient. I am donor recruitment manager this weekend and will contact the patient with ultrasound results if more urgent evaluation /intervent ion is needed. care 46558592 8 Z39.2 *Due to developmen t of inclement weather, this previously scheduled in-person visit was converted to a phone visit* Post-partu m [id number] who is 1 week s/p repeat low-transv erse section with bilateral salpingect jonn.Pregna ncy complicati ons: Anxiety/De pression, Anemia, Hyperemesi s Gravidarum , Trichomona sBottle feeding without difficulty .She denies any changes in her mood.Last Pap - 04/05/21 = unsatisfac tory for evaluation , HPV neg. 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 No TB test performed at this clinic today. nor any immunizati on shot given . Health Concerns Section Related Observation LastModified by Organization Detai ls LastModified Time None Recorded Concern Status LastModified by Organization Details LastModified Time None Recorded Advance Directives Directive N: Payers Encounter Date Sequence Insurance Name Policy Number Policy Perdomo Covered Member ID Perdomo Member ID Guarantor Name 11/05/2021 1 [facility] ON OR AFTER 05/24/21 (MEDICAID REPLACEMENT - HMO) Mavis Morel Gee [id number] Mavis Cedillos 11/20/2021 1 [facility] ON OR AFTER 05/24/21 (MEDICAID REPLACEMENT - HMO) Mavis Cedillos [id number] Mavis Cedillos 12/27/2021 1 [facility] ON OR AFTER 05/24/21 (MEDICAID REPLACEMENT - HMO) Mavis Morel Gee [id number] Mavis Cedillos 01/02/2022 1 [facility] ON OR AFTER 05/24/21 (MEDICAID REPLACEMENT - HMO) Mavis Morel Gee [id number] Mavis Cedillos 08/09/2022 1 [facility] ON OR AFTER 05/24/21 (MEDICAID REPLACEMENT - HMO) Mavis Cedillos [id number] Mavis Gee Notes Date Note Type Note Provider Name and Address Organization Details Recorded Time 11/20/2021 text/html VisitReported bypatient.Onset/Timing :date of delivery:; 11/12/2021 Context:feeding choice: bottle; good support from partner/family Associated Symptoms:no abnormal bleeding; no pelvic pain; no constipation; no fecal incontinence; no dysuria; no urinary incontinence; no fever; no mastitis G3P#3003 who is 1 week s/p repeat low-transverse section with bilateral salpingectomy. Pain well controlled. No bowel or bladder complaints. complications: Anxiety/Depression, Anemia, Hyperemesis Gravidarum, TrichomonasBottle feeding without difficulty.She denies any changes in her mood.Last Pap - 04/05/21 = unsatisfactory for evaluation, HPV neg Edgardo Stovall null, [place] - [facility] 11/25/2021 22:47:34 12/27/2021 text/html VisitReported bypatient.Onset/Timing :date of delivery:; 11/12/2021 Context:feeding choice: bottle; good support from partner/family Associated Symptoms:no pelvic pain; no constipation; no fecal incontinence; no dysuria; no urinary incontinence; no fever; no mastitis *Due to development of inclement weather, this previously scheduled in-person visit was converted to a phone visit* who is 1 week s/p repeat low-transverse section with bilateral salpingectomy. Pain well controlled. No bowel or bladder complaints.Patient reports heavy vaginal bleeding since delivery today. She has been unable to follow up secondary to scheduling issues in office per patient report. Patient states heavy bleeding with occasional passage of clots using 10-15 pads per day since delivery. Patient denies any headaches vision changes near syncope, fatigue, exertional dyspnea other signs of worsening anemia. Patient reports past history of heavy menses in between her last pregnancies. No other complaints today. complications: Anxiety/Depression, Anemia, Hyperemesis Gravidarum, TrichomonasBottle feeding without difficulty.She denies any changes in her mood. depression screening reassuring.Last Pap - 04/05/21 = unsatisfactory for evaluation, HPV neg Edgardo Stovall null, [place] - [facility] 01/13/2022 15:06:59 08/09/2022 text/html Office visit, jacklyn keller to bactrim. 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 Immunization was TDAP and annual flu shots, got copy from files and gave to her today. Joaquina Salazar MD Attn: Accounting,[address] [place], [address], [place] - [facility] 08/09/2022 18:03:07 OBGyn Episode Ob Episode Information Episode Created Date Number of Fetuses Patient Bloodtype Patient rh Status Prepregnancy Weight lbs Domestic Partner Domestic Partner Phone Father Name Behavioral Interventionist Status 04/05/20 21 1 O Positive 180 CLOSED Fetus Data First Name Last Name Admitted to NICU Weight (g) Sex Living Outcome Pediatric Complications Fetus ID Race Codes Race Delivery Type Radha Gee false 3855.53 2 M true Full Term Pt failed his hearing test in left ear twice. per mother Pt had two hematomas on his head from vacuum 79986 2106-3 White Repeat Problems Problem Notes Problem Name Start Date End Date Resolution Snomed Code Not e Urogenital infection by Tric homonas vaginalis 04/11/2021 16481832 Generalized anxiety disorder 07/13/2020 85230499 Migraine 08/22/2021 24639014 Deliveries by 11/09/2018 [id number] 004 Hyperemesis gravidarum 5950991 1 Depressive disorder 07/13/2020 56046588 Glucose tolerance test outsi de reference range 08/23/2021 573015099 Anemia 03/02/2018 940580780 Mac Calculation Initial Mac Date Initial Exam Date Initial Exam Provider Initial Ultrasound Date Last Menstrual Period Date Ultra Sound Weeks Gestation 11/17/2021 04/05/2021 [email or web address] 04/05/2021 02/11/2021 7 Eighteen To Twenty Week Mac Update Ultra Sound Date Fundal Height At Umbil Quickening Date Ultra Sound Latest Weeks Gestation Final Mac Confirmed By Final Mac Confirmed Date Final Mac Date Ultra Sound Latest Days Gestation 05/03/20 21 11 11/17/20 21 5 Pre-florecita Flowsheet Flowsheet Date 04/05/2021 Mata Score Blood Edema Fundus Height Fundus Units Glucose Ketones Leukocytes Nitrite Labor Signs Protein Cervic Dilation Cervic Effacement Cervic Station neg none 7 wks none negative none neg Type Weight in lbs Pre/Post Dialysis Refused With clothes 180.518952487852 BP Diastolic BP Location Tested BP Systolic BP Type 58 102 sitting Fetus Heart Rate Present Fetus Movement Comments Patient will have 1st trimes ter US today. Routine OB labs drawn. B12 shot received. Return to clinic in 1 month. Cervix closed, no bleeding. Flowsheet Date 05/03/2021 Mata Score Blood Edema Fundus Height Fundus Units Glucose Ketones Leukocytes Nitrite Labor Signs Protein Cervic Dilation Cervic Effacement Cervic Station neg none 12 wks none negative none neg Type Weight in lbs Pre/Post Dialysis Refused With clothes 177.907059009709 BP Diastolic BP Location Tested BP Systolic BP Type 64 122 sitting Fetus Heart Rate Present A 145 Present Fetus Movement A No Comments B12 given/us monthly /NIPT(b oy per expensive test!) Flowsheet Date 06/25/2021 Mata Score Blood Edema Fundus Height Fundus Units Glucose Ketones Leukocytes Nitrite Labor Signs Protein Cervic Dilation Cervic Effacement Cervic Station neg none 19 wks none negative none neg Type Weight in lbs Pre/Post Dialysis Refused With clothes 180.560064301938 BP Diastolic BP Location Tested BP Systolic BP Type 68 104 sitting Fetus Heart Rate Present A 144 Present Fetus Movement A Yes Comments Flowsheet Date 07/23/2021 Mata Score Blood Edema Fundus Height Fundus Units Glucose Ketones Leukocytes Nitrite Labor Signs Protein Cervic Dilation Cervic Effacement Cervic Station neg none 23 cm none negative Other (see comments ) neg Type Weight in lbs Pre/Post Dialysis Refused With clothes 0.0 BP Diastolic BP Location Tested BP Systolic BP Type 62 118 sitting Fetus Heart Rate Present A 142 Present Fetus Movement A Yes Comments anxiety and depression. star tiffany the patient on escitalopram + buspirone. declined counseling. started ubrelvy for daily migraines. DECLINES COVID VACCINE. 28 week labs next visit. OB F/U. Flowsheet Date 08/22/2021 Mata Score Blood Edema Fundus Height Fundus Units Glucose Ketones Leukocytes Nitrite Labor Signs Protein Cervic Dilation Cervic Effacement Cervic Station neg none 27 wks none negative none neg Type Weight in lbs Pre/Post Dialysis Refused With clothes 189.394486298442 BP Diastolic BP Location Tested BP Systolic BP Type 72 125 sitting Fetus Heart Rate Present A 152 Present Fetus Movement A Yes Comments Tdap, GTT, kick counts and 3rd trimester US order given today. Plan on 11/10/21. Not taking the buspirone and escitalopram. Flowsheet Date 09/26/2021 Mata Score Blood Edema Fundus Height Fundus Units Glucose Ketones Leukocytes Nitrite Labor Signs Protein Cervic Dilation Cervic Effacement Cervic Station trace none 32 wks none negative Howell Modi neg Type Weight in lbs Pre/Post Dialysis Refused With clothes 193.03625369425 BP Diastolic BP Location Tested BP Systolic BP Type 70 120 sitting Fetus Heart Rate Present A 133 Present Fetus Movement A Yes Comments abnl 1hr-GTT, normal 3hr-GTT . No complaints today. B12 given. HIV, RPR done today. Gave maternity belt for back pain. Order for 3D US given. Flowsheet Date 10/11/2021 Mata Score Blood Edema Fundus Height Fundus Units Glucose Ketones Leukocytes Nitrite Labor Signs Protein Cervic Dilation Cervic Effacement Cervic Station neg none 35 none negative none neg Type Weight in lbs Pre/Post Dialysis Refused With clothes 195.949662541369 BP Diastolic BP Location Tested BP Systolic BP Type 76 122 sitting Fetus Heart Rate Present A 145 Fetus Movement A Yes Comments No VB, VD, or regular contra ctions, or decreased movement. Patient reports possible leakage of fluid for 2 weeks - ferning negative. No pooling or fluid with Valsalva. Patient desires tubal and possible ablation 2/2 to history of heavy menses. Desires repeat C/S. Nuswab today. RTC 1 week - GBS at that time Flowsheet Date 10/23/2021 Maat Score Blood Edema Fundus Height Fundus Units Glucose Ketones Leukocytes Nitrite Labor Signs Protein Cervic Dilation Cervic Effacement Cervic Station neg none 36 none negative none neg Type Weight in lbs Pre/Post Dialysis Refused With clothes 199.1206864290 BP Diastolic BP Location Tested BP Systolic BP Type 66 106 sitting Fetus Heart Rate Present A 145 Fetus Movement A Yes Comments No VB, VD, or regular contra ctions, or decreased movement. Patient desires tubal at time of repeat C/S. Taking medication for previously Dx'd Trichomonas and Candidiasis. Mood stable. RTC 1 week - GBS at that time. Flowsheet Date 10/30/2021 Mata Score Blood Edema Fundus Height Fundus Units Glucose Ketones Leukocytes Nitrite Labor Signs Protein Cervic Dilation Cervic Effacement Cervic Station none 37 none Type Weight in lbs Pre/Post Dialysis Refused With clothes 202.058288474442 BP Diastolic BP Location Tested BP Systolic BP Type 68 132 sitting Fetus Heart Rate Present A 145 Fetus Movement A Yes Comments No VB, VD, regular contracti ons, or decreased movement. GBS today. Patient reports continued sensation of LOF despite reassuring triage assessment. Neg ferning and pooling today. Recommended Monistat for clinically evident candidiasis. Anxiety and depression stable. RTC in 1 week. Flowsheet Date 11/05/2021 Mata Score Blood Edema Fundus Height Fundus Units Glucose Ketones Leukocytes Nitrite Labor Signs Protein Cervic Dilation Cervic Effacement Cervic Station neg none 37 none negative none neg Type Weight in lbs Pre/Post Dialysis Refused Weight 202.702323427217 BP Diastolic BP Location Tested BP Systolic BP Type 70 110 sitting Fetus Heart Rate Present A 145 Fetus Movement A Yes Comments No VB, VD, or regular contra ctions, or decreased movement. Plans for RTCS with BTL on 11/13. Flowsheet Date 11/20/2021 Mata Score Blood Edema Fundus Height Fundus Units Glucose Ketones Leukocytes Nitrite Labor Signs Protein Cervic Dilation Cervic Effacement Cervic Station Type Weight in lbs Pre/Post Dialysis Refused With clothes 184.905467196222 BP Diastolic BP Location Tested BP Systolic BP Type 60 L arm 112 sitting Fetus Heart Rate Present Fetus Movement Comments Menstrual History Last Menstrual Date Menses Monthly On Bcp Conception Prior Menses Frequency Hcg Plus Date Menarche Onset Age 0302/11/2021 false Genetic Screening And Infection History Question Response Note Patient's Age Will Be 35 Years Or Older At Estim ated Date of Delivery false Thalassemia (Lao, Liberian, Mediterranean, Or Background): MCV < 80 false Neural Tube Defect (Meningomyelocele, Spina Bifi da, Or Anencephaly) false Congenital Heart Defect false Down Syndrome false Ford-Sachs (eg, Moravian, Cajun, Sami-Kazakh) f alse Iman Disease false Sickle Cell Disease Or Trait () false Hemophilia Or Other Blood Disorders false Muscular Dystrophy false Cystic Fibrosis false [place]'s Chorea false Mental Retardation/Autism false If Yes, Was Person Tested For Fragile X? false Other Inherited Genetic Or Chromosomal Disorder true MTHFR Maternal Metabolic Disorder (eg, Type 1 Diabetes , PKU) false Patient Or Baby's Father Had A Child With Defects Not Listed Above false Recurrent Loss, Or A Stillbirth false Medications (including Suppl ements, Vitamins, Herbs, OTC Drugs), Illicit/Recreational Drugs, Alcohol false If Yes, Agent(s) And Strength/Dosage false Any Other Genetic History false Live With Someone With TB Or Exposed To TB false Patient Or Partner Has History Of Genital Herpes false Rash Or Viral Illness Since Last Menstrual Perio d false History Of STD, Gonorrhea, Chlamydia, HPV, Syphi lis true TV Other Infection History true bv History of HIV false History of Hepatitis false Prior GBS-infected child false Delivery Information Delivery Date Delivery Type Labor Anesthesia Weeks Gestation Incision Type Labor Labor Length Hrs Delivered By Post Complications Tubal Sterilization Discharge Date Comments 1 [facility] 39[facility]2 Low Transvers e false Luis Levi MD None true 11/15/2021 Discharge Information Feeding Method Contraceptive Method Maternal HG B and HCT Levels Bottle Tubal Ob Episode Information Episode Created Date Number of Fetuses Patient Bloodtype Patient rh Status Prepregnancy Weight lbs Domestic Partner Domestic Partner Phone Father Name Behavioral Interventionist Status 11/08/20 15 1 O Positive 138 Butch Merritt CLOSED Fetus Data First Name Last Name Admitted to NICU Weight (g) Sex Living Outcome Pediatric Complications Fetus ID Race Codes Race Delivery Type Pedro Culpraji gray Kahlil en false 3146.79 45 F true Full Term 42581 2106-3 White Mid Vacuum Extractio n Problems Problem Notes Baby Girl, Pedro Jennifer Andreina alcantara, going to try to breast feed, Raul Merritt MD for raw shellfish preparer, vaginal epidural for pain relief if she feels she needs it. PPBC is going to be Depo Provera. David [employer] COORDINATOR 03/04/2016 Problem Name Start Date End Date Resolution Snomed Code Not e Hyperemesis 594405168 Abnormal progesterone 63893795 0 Candidiasis 00760696 Acute lower urinary tract infection 147946015 Hyperemesis gravidarum 3991062 1 Lower urinary tract symptoms 3 60206362 Urinary tract infectious disease 86255074 Reduced movement 4782991 06 Mac Calculation Initial Mac Date Initial Exam Date Initial Exam Provider Initial Ultrasound Date Last Menstrual Period Date Ultra Sound Weeks Gestation 06/10/2016 11/08/2015 jerry 11/13/2015 09/05/2015 10 Eighteen To Twenty Week Mac Update Ultra Sound Date Fundal Height At Umbil Quickening Date Ultra Sound Latest Weeks Gestation Final Mac Confirmed By Final Mac Confirmed Date Final Mac Date Ultra Sound Latest Days Gestation 0 [email or web address] 04/18/2016 06/10/20 16 0 Pre- Flowsheet Flowsheet Date 11/08/2015 Mata Score Blood Edema Fundus Height Fundus Units Glucose Ketones Leukocytes Nitrite Labor Signs Protein Cervic Dilation Cervic Effacement Cervic Station 9 wks Type Weight in lbs Pre/Post Dialysis Refused 139.962639788336 BP Diastolic BP Location Tested BP Systolic BP Type 64 100 sitting Fetus Heart Rate Present Fetus Movement Comments nob Flowsheet Date 12/04/2015 Mata Score Blood Edema Fundus Height Fundus Units Glucose Ketones Leukocytes Nitrite Labor Signs Protein Cervic Dilation Cervic Effacement Cervic Station neg none 12 wks none negative none neg Type Weight in lbs Pre/Post Dialysis Refused 135.79468535421 BP Diastolic BP Location Tested BP Systolic BP Type 60 100 Fetus Heart Rate Present A 161 Present Fetus Movement A Yes Comments Flowsheet Date 12/08/2015 Mata Score Blood Edema Fundus Height Fundus Units Glucose Ketones Leukocytes Nitrite Labor Signs Protein Cervic Dilation Cervic Effacement Cervic Station Type Weight in lbs Pre/Post Dialysis Refused BP Diastolic BP Location Tested BP Systolic BP Type Fetus Heart Rate Present Fetus Movement Comments Flowsheet Date 01/04/2016 Mata Score Blood Edema Fundus Height Fundus Units Glucose Ketones Leukocytes Nitrite Labor Signs Protein Cervic Dilation Cervic Effacement Cervic Station 17 wks Type Weight in lbs Pre/Post Dialysis Refused 141.333307336788 BP Diastolic BP Location Tested BP Systolic BP Type 64 102 sitting Fetus Heart Rate Present A 152 Fetus Movement Comments Flowsheet Date 02/05/2016 Mata Score Blood Edema Fundus Height Fundus Units Glucose Ketones Leukocytes Nitrite Labor Signs Protein Cervic Dilation Cervic Effacement Cervic Station neg none 17 cm none negative none neg Type Weight in lbs Pre/Post Dialysis Refused 145.9822846278 BP Diastolic BP Location Tested BP Systolic BP Type 64 108 Fetus Heart Rate Present A 161 Present Fetus Movement A Yes Comments Flowsheet Date 03/04/2016 Mata Score Blood Edema Fundus Height Fundus Units Glucose Ketones Leukocytes Nitrite Labor Signs Protein Cervic Dilation Cervic Effacement Cervic Station Type Weight in lbs Pre/Post Dialysis Refused 148.804149154979 BP Diastolic BP Location Tested BP Systolic BP Type 56 110 sitting Fetus Heart Rate Present Fetus Movement Comments Flowsheet Date 04/01/2016 Mata Score Blood Edema Fundus Height Fundus Units Glucose Ketones Leukocytes Nitrite Labor Signs Protein Cervic Dilation Cervic Effacement Cervic Station neg none 28 cm none trace none trace Type Weight in lbs Pre/Post Dialysis Refused 154.501709845157 BP Diastolic BP Location Tested BP Systolic BP Type 52 98 sitting Fetus Heart Rate Present A 154 Present Fetus Movement A Yes Comments Flowsheet Date 04/15/2016 Mata Score Blood Edema Fundus Height Fundus Units Glucose Ketones Leukocytes Nitrite Labor Signs Protein Cervic Dilation Cervic Effacement Cervic Station none 25 cm none small none 1+ Type Weight in lbs Pre/Post Dialysis Refused 155.39640433187 BP Diastolic BP Location Tested BP Systolic BP Type 62 110 sitting Fetus Heart Rate Present A 142 Present Fetus Movement A Yes Comments Flowsheet Date 04/29/2016 Mata Score Blood Edema Fundus Height Fundus Units Glucose Ketones Leukocytes Nitrite Labor Signs Protein Cervic Dilation Cervic Effacement Cervic Station neg none 34 wks none negative none neg Type Weight in lbs Pre/Post Dialysis Refused 156.291125484407 BP Diastolic BP Location Tested BP Systolic BP Type 60 120 sitting Fetus Heart Rate Present A 154 Present Fetus Movement A Yes Comments [facility] Flowsheet Date 05/13/2016 Mata Score Blood Edema Fundus Height Fundus Units Glucose Ketones Leukocytes Nitrite Labor Signs Protein Cervic Dilation Cervic Effacement Cervic Station neg none 29 cm none negative Pressure neg 0cm 50 % -3 Type Weight in lbs Pre/Post Dialysis Refused 160.626305574052 BP Diastolic BP Location Tested BP Systolic BP Type 66 118 Fetus Heart Rate Present A 146 Present Fetus Movement A Yes Comments Flowsheet Date 05/20/2016 Mata Score Blood Edema Fundus Height Fundus Units Glucose Ketones Leukocytes Nitrite Labor Signs Protein Cervic Dilation Cervic Effacement Cervic Station neg none 33 none negative neg 1cm 40% - 1 Type Weight in lbs Pre/Post Dialysis Refused 160.164875531796 BP Diastolic BP Location Tested BP Systolic BP Type 60 122 sitting Fetus Heart Rate Present A 136 Present Fetus Movement A Yes Comments Seen in ER this am. Placed o n Ampicillin for probable UTI. Flowsheet Date 05/28/2016 Mata Score Blood Edema Fundus Height Fundus Units Glucose Ketones Leukocytes Nitrite Labor Signs Protein Cervic Dilation Cervic Effacement Cervic Station neg trace 33 cm none negative Gigi Modi trace 2cm 70% -1 Type Weight in lbs Pre/Post Dialysis Refused 163.828295283087 BP Diastolic BP Location Tested BP Systolic BP Type 74 116 sitting Fetus Heart Rate Present A 124 Present Fetus Movement A Yes Comments Flowsheet Date 06/04/2016 Mata Score Blood Edema Fundus Height Fundus Units Glucose Ketones Leukocytes Nitrite Labor Signs Protein Cervic Dilation Cervic Effacement Cervic Station 29 Howell Modi Type Weight in lbs Pre/Post Dialysis Refused 165.792490164492 BP Diastolic BP Location Tested BP Systolic BP Type 76 116 sitting Fetus Heart Rate Present A 120 Absent Fetus Movement A Yes Comments Flowsheet Date 06/06/2016 Mata Score Blood Edema Fundus Height Fundus Units Glucose Ketones Leukocytes Nitrite Labor Signs Protein Cervic Dilation Cervic Effacement Cervic Station neg none none negative Other (see comments ) neg Type Weight in lbs Pre/Post Dialysis Refused 163.830532694893 BP Diastolic BP Location Tested BP Systolic BP Type 72 114 sitting Fetus Heart Rate Present A 142 Present Fetus Movement A Yes Comments Flowsheet Date 07/22/2016 Mata Score Blood Edema Fundus Height Fundus Units Glucose Ketones Leukocytes Nitrite Labor Signs Protein Cervic Dilation Cervic Effacement Cervic Station neg none none negative neg Type Weight in lbs Pre/Post Dialysis Refused 145.3489311555 BP Diastolic BP Location Tested BP Systolic BP Type 70 114 sitting Fetus Heart Rate Present Fetus Movement Comments Menstrual History Last Menstrual Date Menses Monthly On Bcp Conception Prior Menses Frequency Hcg Plus Date Menarche Onset Age 1009/05/2015 true false 28 5 13 Genetic Screening And Infection History Question Response Note Patient's Age Will Be 35 Yea rs Or Older At Estimated Date of Delivery false Thalassemia (Lao, Liberian, Mediterranean, Or Background): MCV < 80 false Neural Tube Defect (Meningom yelocele, Spina Bifida, Or Anencephaly) false Congenital Heart Defect false Down Syndrome false Ford-Sachs (eg, Moravian, Cajun, Sami-Kazakh) f alse Iman Disease false Sickle Cell Disease Or Trait () false Hemophilia Or Other Blood Disorders false Muscular Dystrophy false Cystic Fibrosis false [place]'s Chorea false Mental Retardation/Autism false If Yes, Was Person Tested For Fragile X? false Other Inherited Genetic Or Chromosomal Disorder false Maternal Metabolic Disorder (eg, Type 1 Diabetes , PKU) false Patient Or Baby's Father Had A Child With Defects Not Listed Above false Recurrent Loss, Or A Stillbirth false Medications (including Suppl ements, Vitamins, Herbs, OTC Drugs), Illicit/Recreational Drugs, Alcohol true v itamin If Yes, Agent(s) And Strength/Dosage false Any Other Genetic History false Live With Someone With TB Or Exposed To TB false Patient Or Partner Has History Of Genital Herpes false Rash Or Viral Illness Since Last Menstrual Perio d false History Of STD, Gonorrhea, Chlamydia, HPV, Syphi lis false Other Infection History false Plans and Education First Trimester Discussed Date Discussion Item Discussion Note Discuss ed By 12/08/2015 Anticipated course o f care Handout given 12/08/2015 Alcohol Handout given 12/08/2015 Intimate partner violence jg 12/08/2015 Screening for aneuploidy [email or web address] 12/08/2015 Nutrition counseling ; special diet; dietary precautions (mercury, listeriosis) Handout given [email or web address] 12/08/2015 Childbirth classes/h ospital facilities 12/08/2015 HIV and other routin e tests [email or web address] 12/08/2015 Weight gain counseling Handout given [facility]12/08/2015 Exercise Handout given 12/08/2015 Teratogens Handout given [email or web address] 12/08/2015 Use of any medicatio ns (including supplements, vitamins, herbs, or OTC drugs) Using vitamin 12/08/2015 12/08/2015 Tobacco/smoking cess ation counseling (ask, advise, assess, assist, and arrange) non-smoker 12/08/2015 Illicit/recreational drugs Denies j [email or web address] 12/08/2015 Dental care Handout given 12/08/2015 Seat belt use [email or web address] 12/08/2015 Indications for ultrasonography [email or web address] 12/08/2015 Avoidance of saunas or hot tubs Handout g iven 12/08/2015 Toxoplasmosis precau tions (cats/raw meat) Handout given Second Trimester Discussed Date Discussion Item Discussion Note Discuss ed By 12/08/2015 [address] a care provider Dr Dave Tsang [email or web address] 12/08/[address]/tubal sterilization pt wants to take bcp Third Trimester Discussed Date Discussion Item Discussion Note Discuss ed By 12/08/2015 Anesthesia plans Undecided [email or web address] 12/08/2015 Circumcision Yes [email or web address] 12/08/2015 [email or web address] Delivery Information Delivery Date Delivery Type Labor Anesthesia Weeks Gestation Incision Type Labor Labor Length Hrs Delivered By Post Complications Tubal Sterilization Discharge Date Comments 6 [facility] 39.5 false 8 Rasmussen None false 06/10/2016 Shannon Merritt Discharge Information Feeding Method Contraceptive Method Maternal HG B and HCT Levels Bottle Depo Provera Ob Episode Information Episode Created Date Number of Fetuses Patient Bloodtype Patient rh Status Prepregnancy Weight lbs Domestic Partner Domestic Partner Phone Father Name Behavioral Interventionist Status 09/23/20 17 1 O Positive Butch Baird CLOSED Fetus Data First Name Last Name Admitted to NICU Weight (g) Sex Living Outcome Pediatric Complications Fetus ID Race Codes Race Delivery Type Jose Guillory en false 3316.89 15 M true Full Term 19172 2106-3 White Primary Problems Problem Notes 02/26/18 boy per ultrasound, Jose NietoNelsonivone, circumcision is yes, elective due to size of the baby. 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 PPBC, undecided on BC, Pt States NO TO TUBAL, Problem Name Start Date End Date Resolution Snomed Code Not e Bacterial vaginosis 344015961 HPV - Human papillomavirus t est positive 09/23/2017 993497025 Abnormal progesterone 95211865 0 Urinary tract infectious disease 56903856 Candidiasis 28235412 Anemia 03/02/2018 558956360 Suspected macrosomia 04/16/2018 30 8846177 Mac Calculation Initial Mac Date Initial Exam Date Initial Exam Provider Initial Ultrasound Date Last Menstrual Period Date Ultra Sound Weeks Gestation 05/12/2018 09/23/2017 jerry 09/29/2017 08/10/2017 11 Eighteen To Twenty Week Mac Update Ultra Sound Date Fundal Height At Umbil Quickening Date Ultra Sound Latest Weeks Gestation Final Mac Confirmed By Final Mac Confirmed Date Final Mac Date Ultra Sound Latest Days Gestation 09/29/20 17 15 [email or web address] 03/04/2018 05/12/20 18 4 Pre- Flowsheet Flowsheet Date 09/23/2017 Mata Score Blood Edema Fundus Height Fundus Units Glucose Ketones Leukocytes Nitrite Labor Signs Protein Cervic Dilation Cervic Effacement Cervic Station neg none none negative trace Type Weight in lbs Pre/Post Dialysis Refused 142.691303951520 BP Diastolic BP Location Tested BP Systolic BP Type 68 100 sitting Fetus Heart Rate Present Fetus Movement Comments NOB visit; US planned for Flowsheet Date 10/23/2017 Mata Score Blood Edema Fundus Height Fundus Units Glucose Ketones Leukocytes Nitrite Labor Signs Protein Cervic Dilation Cervic Effacement Cervic Station Type Weight in lbs Pre/Post Dialysis Refused 136.137267862608 BP Diastolic BP Location Tested BP Systolic BP Type 56 112 sitting Fetus Heart Rate Present Fetus Movement Comments Flowsheet Date 12/02/2017 Mata Score Blood Edema Fundus Height Fundus Units Glucose Ketones Leukocytes Nitrite Labor Signs Protein Cervic Dilation Cervic Effacement Cervic Station neg none 16 cm none negative Other (see comments ) neg Type Weight in lbs Pre/Post Dialysis Refused 146.801016732236 BP Diastolic BP Location Tested BP Systolic BP Type 60 128 sitting Fetus Heart Rate Present A 136 Present Fetus Movement A Yes Comments URI symptoms, sore throat, r apid strep negative, RX given Flowsheet Date 12/30/2017 Mata Score Blood Edema Fundus Height Fundus Units Glucose Ketones Leukocytes Nitrite Labor Signs Protein Cervic Dilation Cervic Effacement Cervic Station neg none 20 wks none negative none neg Type Weight in lbs Pre/Post Dialysis Refused 154.690997017062 BP Diastolic BP Location Tested BP Systolic BP Type 52 104 sitting Fetus Heart Rate Present A 144 Present Fetus Movement A Yes Comments afp nl/ us monthly growth Flowsheet Date 01/29/2018 Mata Score Blood Edema Fundus Height Fundus Units Glucose Ketones Leukocytes Nitrite Labor Signs Protein Cervic Dilation Cervic Effacement Cervic Station neg none 25 cm none negative Backpain neg Type Weight in lbs Pre/Post Dialysis Refused 161.517198809297 BP Diastolic BP Location Tested BP Systolic BP Type 58 108 sitting Fetus Heart Rate Present A 138 Present Fetus Movement A Yes Comments c/o of back pain and copious vaginal d/c; was seen in the ER last night and treated for UTI; OB FU at next visit Flowsheet Date 02/26/2018 Mata Score Blood Edema Fundus Height Fundus Units Glucose Ketones Leukocytes Nitrite Labor Signs Protein Cervic Dilation Cervic Effacement Cervic Station neg none 28 wks none negative none neg Type Weight in lbs Pre/Post Dialysis Refused 169.769901629398 BP Diastolic BP Location Tested BP Systolic BP Type 62 110 sitting Fetus Heart Rate Present A 150 Present Fetus Movement A Yes Comments recurrent uti/tdap/gtt/us Flowsheet Date 03/16/2018 Mata Score Blood Edema Fundus Height Fundus Units Glucose Ketones Leukocytes Nitrite Labor Signs Protein Cervic Dilation Cervic Effacement Cervic Station trace none 24 cm none negative none trace Type Weight in lbs Pre/Post Dialysis Refused 171.922947457543 BP Diastolic BP Location Tested BP Systolic BP Type 62 118 sitting Fetus Heart Rate Present A 136 Present Fetus Movement A Yes Comments monthly US Flowsheet Date 04/02/2018 Mata Score Blood Edema Fundus Height Fundus Units Glucose Ketones Leukocytes Nitrite Labor Signs Protein Cervic Dilation Cervic Effacement Cervic Station neg none 35 cm none negative none neg Type Weight in lbs Pre/Post Dialysis Refused 169.982119785221 BP Diastolic BP Location Tested BP Systolic BP Type 60 112 sitting Fetus Heart Rate Present A 137 Present Fetus Movement A Yes Comments Flowsheet Date 04/16/2018 Mata Score Blood Edema Fundus Height Fundus Units Glucose Ketones Leukocytes Nitrite Labor Signs Protein Cervic Dilation Cervic Effacement Cervic Station neg none 32 cm none negative none neg 0cm 100% 0 Type Weight in lbs Pre/Post Dialysis Refused 174.71098359844 BP Diastolic BP Location Tested BP Systolic BP Type 62 114 sitting Fetus Heart Rate Present A 145 Present Fetus Movement A Yes Comments wtc/wlb lga wants c/s electi ve after 39w Flowsheet Date 04/22/2018 Mata Score Blood Edema Fundus Height Fundus Units Glucose Ketones Leukocytes Nitrite Labor Signs Protein Cervic Dilation Cervic Effacement Cervic Station neg none 28 cm none negative Uterine Contract ions neg Type Weight in lbs Pre/Post Dialysis Refused 175.042054057108 BP Diastolic BP Location Tested BP Systolic BP Type 60 118 sitting Fetus Heart Rate Present A 145 Present Fetus Movement A Yes Comments SHIRLEY with contractions. Discu ssed suspected macroscopic fetus. Flowsheet Date 04/23/2018 Mata Score Blood Edema Fundus Height Fundus Units Glucose Ketones Leukocytes Nitrite Labor Signs Protein Cervic Dilation Cervic Effacement Cervic Station neg none 23 cm none negative Uterine Contract ions neg 0cm 0% -4 Type Weight in lbs Pre/Post Dialysis Refused 175.704003909091 BP Diastolic BP Location Tested BP Systolic BP Type 60 100 sitting Fetus Heart Rate Present A 128 Present Fetus Movement A Yes Comments Discussed macrosomnia and elective c-sec on 05/08/18 still stands Flowsheet Date 04/28/2018 Mata Score Blood Edema Fundus Height Fundus Units Glucose Ketones Leukocytes Nitrite Labor Signs Protein Cervic Dilation Cervic Effacement Cervic Station neg none 34 cm none trace Pressure 1+ Type Weight in lbs Pre/Post Dialysis Refused 178.831385970742 BP Diastolic BP Location Tested BP Systolic BP Type 58 112 sitting Fetus Heart Rate Present A 113 Present Fetus Movement A Yes Comments SHIRLEY. Elective c-sec on 05/08 still stands. Discussed c-sec protocol and what to expect post-procedure. Flowsheet Date 05/05/2018 Mata Score Blood Edema Fundus Height Fundus Units Glucose Ketones Leukocytes Nitrite Labor Signs Protein Cervic Dilation Cervic Effacement Cervic Station 35 cm Type Weight in lbs Pre/Post Dialysis Refused 180.388061562097 BP Diastolic BP Location Tested BP Systolic BP Type 66 122 sitting Fetus Heart Rate Present A 128 Present Fetus Movement A Yes Comments SHIRLEY. Elective sche duled for 05/08/18. Flowsheet Date 05/11/2018 Mata Score Blood Edema Fundus Height Fundus Units Glucose Ketones Leukocytes Nitrite Labor Signs Protein Cervic Dilation Cervic Effacement Cervic Station Type Weight in lbs Pre/Post Dialysis Refused BP Diastolic BP Location Tested BP Systolic BP Type Fetus Heart Rate Present Fetus Movement Comments Flowsheet Date 05/21/2018 Mata Score Blood Edema Fundus Height Fundus Units Glucose Ketones Leukocytes Nitrite Labor Signs Protein Cervic Dilation Cervic Effacement Cervic Station Type Weight in lbs Pre/Post Dialysis Refused 159.194749596590 BP Diastolic BP Location Tested BP Systolic BP Type 60 106 sitting Fetus Heart Rate Present Fetus Movement Comments Menstrual History Last Menstrual Date Menses Monthly On Bcp Conception Prior Menses Frequency Hcg Plus Date Menarche Onset Age 0908/10/2017 false Genetic Screening And Infection History Question Response Note Patient's Age Will Be 35 Years Or Older At Estim ated Date of Delivery false Thalassemia (Lao, Liberian, Mediterranean, Or Background): MCV < 80 false Neural Tube Defect (Meningomyelocele, Spina Bifi da, Or Anencephaly) false Congenital Heart Defect false Down Syndrome false Ford-Sachs (eg, Moravian, Cajun, Sami-Kazakh) f alse Iman Disease false Sickle Cell Disease Or Trait () false Hemophilia Or Other Blood Disorders false Muscular Dystrophy false Cystic Fibrosis false Krystle's Chorea false Mental Retardation/Autism false If Yes, Was Person Tested For Fragile X? false Other Inherited Genetic Or Chromosomal Disorder false Maternal Metabolic Disorder (eg, Type 1 Diabetes , PKU) false Patient Or Baby's Father Had A Child With Defects Not Listed Above false Recurrent Loss, Or A Stillbirth false Medications (including Suppl ements, Vitamins, Herbs, OTC Drugs), Illicit/Recreational Drugs, Alcohol false If Yes, Agent(s) And Strength/Dosage false Any Other Genetic History false Live With Someone With TB Or Exposed To TB false Patient Or Partner Has History Of Genital Herpes false Rash Or Viral Illness Since Last Menstrual Perio d false History Of STD, Gonorrhea, Chlamydia, HPV, Syphi lis true HPV Other Infection History true BV, CA Plans and Education First Trimester Discussed Date Discussion Item Discussion Note Discuss ed By 10/23/2017 Anticipated course o f care [facility] 10/23/2017 Alcohol [facility] 10/23/[address] [facility] 10/23/2017 Environmental/work hazards [facility] 10/23/[address] [facility] 10/23/2017 Nutrition counseling ; special diet; dietary precautions (mercury, listeriosis) [facility] 10/23/2017 Childbirth classes/h ospital facilities [facility] 10/23/2017 HIV and other routin e tests [facility] 10/23/2017 Risk factors identif ied by history [facility] 10/23/2017 Weight gain counseling [facility] 10/23/2017 Exercise [facility] 10/23/2017 Teratogens [facility] 10/23/2017 Use of any medicatio ns (including supplements, vitamins, herbs, or OTC drugs) [facility] 10/23/2017 02/26/18 breast feed, cb-rma [facility] 10/23/2017 Sexual activity [facility] 10/23/2017 Tobacco/smoking cess ation counseling (ask, advise, assess, assist, and arrange) [facility] 10/23/2017 Illicit/recreational drugs cele karen 10/23/2017 Dental care [facility] 10/23/2017 Travel [facility] 10/23/2017 Seat belt use [facility] 10/23/2017 Indications for ultrasonography [facility] 10/23/2017 Avoidance of saunas or hot tubs [facility] 10/23/2017 Toxoplasmosis precau tions (cats/raw meat) [facility] Second Trimester Discussed Date Discussion Item Discussion Note Discuss ed By 02/26/2018 Selecting a care provider 02/26/18 Stefania Pereira MD, Peds, cb-rma 02/26/2018 family planning/tubal sterilization 02/26/18 pt undecided on ppbc, signed BTL papers, NO TO TUBAL, changed mind, cb-rma Third Trimester Discussed Date Discussion Item Discussion Note Discuss ed By 02/26/2018 Anesthesia plans 02/26/18 yes to Epidural , cb-rma 02/26/2018 Circumcision 02/26/18 yes to circ, baby b oy, cb-rma 02/26/2018 02/25/18 breast feed, cb-rm a Delivery Information Delivery Date Delivery Type Labor Anesthesia Weeks Gestation Incision Type Labor Labor Length Hrs Delivered By Post Complications Tubal Sterilization Discharge Date Comments 8 [facility] 39.[address] e false [address] Jones None true 05/10/2018 [facility] Discharge Information Feeding Method Contraceptive Method Maternal HG B and HCT Levels Bottle depo Ob Episode Information Episode Created Date Number of Fetuses Patient Bloodtype Patient rh Status Prepregnancy Weight lbs Domestic Partner Domestic Partner Phone Father Name Behavioral Interventionist Status 05/21/20 18 1 DELETED Mac Calculation Initial Mac Date Initial Exam Date Initial Exam Provider Initial Ultrasound Date Last Menstrual Period Date Ultra Sound Weeks Gestation 0 Eighteen To Twenty Week Mac Update Ultra Sound Date Fundal Height At Umbil Quickening Date Ultra Sound Latest Weeks Gestation Final Mac Confirmed By Final Mac Confirmed Date Final Mac Date Ultra Sound Latest Days Gestation 0 0 Menstrual History Last Menstrual Date Menses Monthly On Bcp Conception Prior Menses Frequency Hcg Plus Date Menarche Onset Age Delivery Information Delivery Date Delivery Type Labor Anesthesia Weeks Gestation Incision Type Labor Labor Length Hrs Delivered By Post Complications Tubal Sterilization Discharge Date Comments 8 39 Discharge Information Feeding Method Contraceptive Method Maternal HG B and HCT Levels
--- OUTSIDE RECORDS SUMMARY | 2025-03-22 11:53 | XMS_ITS | Clinical Summary ---
Author Organization [facility] Address [address] [place] [address] Care Team Providers Care Last Dipper Name Role Phone Unknown, Provider Primary Care Provider Unavaila ble Source Comments [facility],non-owned Affiliates and Associated Physician Practices is amultiple site organization consisting of ambulatory clinics and hospital sitesin [place], [place], [place] and [place]. This disclosure is being madepursuant to the Care Everywhere program and may not contain all information available regarding this patient. Last updated 18.[facility] Allergies Active Allergy Reactions Criticality Noted Date Comments Sulfamethoxazole W-Trimethoprim 12/29/2015 mouth breaks out in cold sores Medications * Be aware that medications may not be up to date on this document. Alwaysverify current medications with the patient. meloxicam (MOBIC) 7.5 MG tablet TAKE 1 TABLETS BY MOUTH ONCE DAILY 0 Active SUMAtriptan (IMITREX) 25 MG tablet 0 Active escitalopram (LEXAPRO) 10 MG tablet escitalopram 10 mg tablet Active vitamin ( 19) 29-1 MG CHEW Gummy 400 mcg-35 mg-25 mg-5 mg chewable tablet Take 1 tablet twice a day by oral route. Active Ca Phosphate-Carissa calciferol (CALTRATE GUMMY BITES) 250-400 MG-UNIT Caltrate Gummy Bites 250 mg-10 mcg (400 unit) chewable tablet Take 1 tablet twice a day by oral route. Active ferrous gluconate 324 (38 Fe) MG tablet ferrous gluconate 324 mg (38 mg iron) tablet Active Progesterone 200 MG capsule progesterone micronized 200 mg capsule Active Active Problems Problem Noted Date Diagnosed Date Hyperemesis affecting , antepartum 01/22 Overview (02/02/2016): Consult from Dr. Díaz Patient taking zofran, reglan, ranitidine, and diclegis Asthma 02/02/2016 Supervision of normal first 01/15/2016 Overview (02/02/2016): Consult from Dr. Díaz Dated by 10w doc u/s (media tab) O+/I/-/-, HIV NR GC/CT neg/neg H/H/Plt 12.0/36.3/270 Hgb elec: nml CF neg Comments Yes Family History Medical History Relation Name Comments Cancer Paternal Grandmother colon Relation Name Status Comments Brother Alive Father Alive Maternal Grandfather Alive Maternal Grandmother Alive Mother Alive Paternal Grandmother Alive Sister Alive Social History Tobacco Use Types Packs/Day Years Used Date Smoking Tobacco: Never Smokeless Tobacco: Never Alcohol Use Standard Drinks/Week Comments No 0 (1 standard drink = 0.6 oz pur e alcohol) Comments Yes Sex and Gender Information Value Date Recorded Sex Assigned at Not on file Legal Sex Female 8:17 AM [employer] Gender Identity Not on file Sexual Orientation Not on file Last Filed Vital Signs Vital Sign Reading Time Taken Comments Blood Pressure 128/85 02/05/2024 6:44 PM CDT Pulse 72 02/05/2024 9:30 PM CDT Temperature 36.8 C (98.2 F) 02/05/2024 6:44 PM CDT Respiratory Rate 16 02/05/2024 9:30 PM CDT Oxygen Saturation 99% 02/05/2024 9:30 PM CDT Inhaled Oxygen Concentration - - Weight 81.6 kg (180 lb) 05/10/2021 2:13 PM CDT Height 175.3 cm (5' 9 ) 05/10/2021 2:13 PM CDT Body Mass Index 26.58 05/10/2021 2:13 PM CDT Plan of Treatment Health Maintenance Due Date Last Done Comments PAP SMEAR 1994 HIV SCREENING 2009 HEPATITIS C SCREENING 11/19/2012 DTAP/TDAP/TD VACCINES (1 - Tdap) 2013 HEPATITIS B VACCINE (1 of 3 - 19+ 3-dose series) 2013 PNEUMOCOCCAL VACCINE (1 of 2 - PCV) 2013 COVID-19 VACCINE (1 - 2023-2 5 season) 2024 DEPRESSION SCREENING 2024 INFLUENZA VACCINE (Season Ended) 2025 09/10/2017, 02/05/2016 ZOSTER VACCINE (1 of 2) 2044 Respiratory Syncytial Virus (RSV) Vaccine Pt: or over 60 yrs (1 - 1-dose 75+ series) 2069 HIB VACCINE Aged Out No longer eligi ble based on patient's age to complete this topic HPV VACCINE Aged Out No longer eligi ble based on patient's age to complete this topic MENINGOCOCCAL (Group B) VACCINE SHARED DECISION-MAKING Aged Out No longer eligible based on patient's age to complete this topic MENINGOCOCCAL GROUPS A/C/Y/W VACCINE Aged Out No longer eligible b ased on patient's age to complete this topic Insurance ON LICENSE OF [facility] [employer] Member Subscriber Plan / Payer (Ef fective for All Dates) Name:Mavis Gee Relation to Subscriber:Self Name:Mavis Gee Payer ID:Not on file Group ID:Not on file Type:[employer] Address: [address] [phone] Advance Directives * Full Code (Latest Code Status on File) Date Activated Date Inactivated Comments 12/29/2015 1:53 PM 12/29/2015 6:55 PM Care Teams Last Dipper Relationship Specialty Start Date End Date Unknown, Provider PCP - General 02/05/24
--- OUTSIDE RECORDS SUMMARY | 2025-03-22 11:53 | XMS_ITS | Clinical Summary ---
Author Organization [facility] Address [address] [place] [id number] Care Team Providers Care It Consulting Manager Name Role Phone Unavailable Primary Care Provider Unavailabl e Social History Tobacco Use Types Packs/Day Years Used Date Smoking Tobacco: Never Assessed Comments Unknown Sex and Gender Information Value Date Recorded Sex Assigned at Not on file Legal Sex Female 8:32 PM CDT Gender Identity Not on file Sexual Orientation Not on file Plan of Treatment Health Maintenance Due Date Last Done Comments Cervical Cancer Screening Pa p Smear (Age 30 to 64) Every 3 Years 1994 Annual Physical 1997 Hepatitis C 2012 DTaP, Tdap and Td Vaccines ( 1 - Tdap) 2013 Hepatitis B Vaccines (1 of 3 - 19+ 3-dose series) 2013 COVID-19 Vaccine (2023-2 5 season) 2024 Cervical Cancer Screening Pa p with HPV Testing (Age 30 to 64) Every 5 Years 2024 Cervical Cancer Screening with HPV 2024 HPV Vaccines Aged Out No longer eligi ble based on patient's age to complete this topic Meningococcal B Vaccine Aged Out No l onger eligible based on patient's age to complete this topic Meningococcal Vaccine Aged Out No nhung samantha eligible based on patient's age to complete this topic Pneumococcal Vaccine: Pediat rics (0 to 5 Years) and At-Risk Patients (6 to 49 Years) Aged Out No longer eligible b ased on patient's age to complete this topic RSV Immunizations Under 20 Months Aged Out No longer eligible based on patient's age to complete this topic
== END 2025-03-22 10:36 | disposition home or self-care (01) ==
PROVIDERS: PCP Family Medicine Sports Medicine; Visit Provider Family Medicine Sports Medicine
DX: S93.492D Sprain of other ligament of left ankle, subsequent encounter (principal); X58.XXXD Exposure to other specified factors, subsequent encounter; M25.472 Effusion, left ankle
CPT/HCPCS: 73721